=== PATIENT | male | born 1940 | race Caucasian/White ===

== ENCOUNTER 2018-01-12 15:30 | Inpatient (IN) | payer OTHER ==
[~2018-01-12] VITALS: Ht 172.7 cm; Wt 78.5 kg
[~2018-01-12 15:30] MED LIST: ACTOS30 M1 PO; AGGRENOX 25 MG1 EACH PO; ATORVASTATIN CA80 M1 PO; CALTRATE 600 +1 EACH PO; CO Q-10100 MG PO; CRESTOR5 M1 PO; DAILY MULTIPLE1 EACH PO; FERROUS SULFAT325 M3 PO; FINASTERIDE5 M1 PO; FISH OIL 1,0001 EAC5 PO; FLOMAX0.4 M1 PO; GLIPIZIDE10 M2 PO; GLIPIZIDE5 M2 PO; HYDROCODON-ACE1 EAC2 PO; LISINOPRIL10 M1 PO; LUTEIN20 M2 PO; LUTEIN6 M3 PO; METFORMIN HCL1000 M1 PO; METOPROLOL TART25 M1 PO; OMEPRAZOLE20 M2 PO; OMEPRAZOLE40 M1 PO; ONGLYZA5 M1 PO; PROBIOTIC1 EACH PO; VITAMIN B-121000 MC3 PO
--- NOTE | 2018-01-12 15:32 | ED GENERAL ADULT ---
See Addendum History of Present Illness General Chief Complaint: General Adult Stated Complaint: BIBA Source: patient Exam Limitations: no limitations Vital Signs & Intake/Output Vital Signs & Intake/Output Vital Signs Date Time Temp Pulse Resp B/P B/P Pulse O2 O2 Flow FiO2 Mean Ox Delivery Rate 01/128 98.4 70 20 142/81 97 Room Air 01/12 1720 97.9 72 18 126/84 96 Room Air 01/12 1555 Room Air 01/12 1548 97.8 68 18 152/74 98 Room Air 11 is Allergies Coded Allergies: aspirin (PLAIN ASA MAKES PT BLEED PER PT 01/10/18) ibuprofen (PER PT DOESNT TAKE 01/10/18) procaine (HEART RACES 01/10/18) Reconcile Medications Calcium Carbonate/Vitamin D3 (Caltrate 600 + D Tablet) 600 MG-800 TABLET 1 TAB PO DAILY SUPPLEMENT (Reported) Cyanocobalamin (Vitamin B-12) 1,000 MCG TABLET 1 TAB PO DAILY SUPPLEMENT ( Reported) Dipyridamole W/ Aspirin (Aggrenox 25 MG-200 MG Capsule) 25 MG-200 MG CPMP.12HR 1 CAP PO BID BLOOD THINNER (Reported) Ferrous Sulfate (Unknown Strength) TABLET.DR (Unknown Dose) PO DAILY SUPPLEMENT (Reported) Finasteride 5 MG TABLET 1 TAB PO DAILY PROSTATE (Reported) Glipizide 5 MG TABLET 1 TAB PO BID DM (Reported) Hydrocodone/Acetaminophen (Hydrocodon-Acetaminophen 5-325) 5 MG-325 MG TABLET 1 TAB PO 5XDAILY PRN PAIN (Reported) Lactobacillus Acidophilus (Probiotic) (Unknown Strength) CAPSULE (Unknown Dose ) PO DAILY PROBIOTIC (Reported) Lutein 20 MG TABLET 1 TAB PO DAILY SUPPLEMENT (Reported) Metformin HCl 1,000 MG TABLET 0.5 TAB PO BID DIABETES (Reported) Metoprolol Tartrate 25 MG TABLET 1 TAB PO BID HEART/BP (Reported) Multivitamin (Daily Multiple Vitamin) 1 EACH TABLET 1 TAB PO 1200 SUPPLEMENT (Reported) [place]-3S/Dha/Epa/Fish Oil (Fish Oil 1,000 MG Softgel) (Unknown Strength) CAPSULE (Unknown Dose) PO TID SUPPLEMENT (Reported) Omeprazole 40 MG CAPSULE.DR 1 CAP PO DAILY GI (Reported) Rosuvastatin Calcium (Crestor) (Unknown Strength) TABLET (Unknown Dose) PO QPM CHOLESTEROL (Reported) Saxagliptin (Onglyza) 5 MG TABLET 1 TAB PO DAILY DM (Reported) Tamsulosin HCl (Flomax) 0.4 MG CAP.ER.24H 1 CAP PO QPM PROSTATE (Reported) Ubidecarenone (Co Q-10) 100 MG CAPSULE 1 CAP PO DAILY SUPPLEMENT (Reported) Triage Nurses Notes Reviewed? yes Onset: Abrupt Duration: minute(s): Timing: single episode today HPI: 77 year old male that presents to the Emergency Department after a rapid response being called from cardiac rehab. He reports right sided weekness and facial droop during cardiac rehab. on arrival he was taken directly to cat scan and experienced complete resolution of the right sided weakness. No chest pain no shortness of breath. Past History Medical History Any Pertinent Medical History? see below for history Neurological: NONE EENT: NONE Cardiovascular: hypertension, hyperlipidemia Respiratory: pneumonia Gastrointestinal: NONE Hepatic: NONE Renal: NONE Musculoskeletal: NONE Psychiatric: NONE Endocrine: diabetes Blood Disorders: NONE Cancer(s): NONE TAIL TRIMMER/Reproductive: NONE History of MRSA: No History of VRE: No History of CDIFF: No Surgical History Surgical History: history of prostate biopsy with negative results., aortic valve replacement Psychosocial History What is your primary language Estonian Family History Family History, If Any: grandmother FH: diabetes mellitus Hx Contributory? No Review of Systems Review of Systems Constitutional: Reports: see HPI, weakness. Denies: fever. EENTM: Reports: no symptoms. Denies: double vision, visual changes. Respiratory: Reports: no symptoms. Cardiovascular: Reports: no symptoms. Denies: chest pain. GI: Reports: no symptoms. Denies: nausea, vomiting. Genitourinary: Reports: no symptoms. Musculoskeletal: Reports: no symptoms. Skin: Reports: no symptoms. Neurological/Psychological: Reports: see HPI, numbness, paresthesia, weakness, other (left sided facial deficit). Denies: headache. Hematologic/Endocrine: Reports: no symptoms. Immunologic/Allergic: Reports: no symptoms. All Other Systems: Reviewed and Negative Physical Exam Physical Exam General Appearance: well developed/nourished, alert, awake, mild distress Head: atraumatic, normal appearance Eyes: Bilateral: normal appearance, PERRL, EOMI. Ears, Nose, Throat: normal ENT inspection Neck: normal inspection, full range of motion Respiratory: normal breath sounds, lungs clear Cardiovascular: regular rate/rhythm Peripheral Pulses: 4+ radial (R), 4+ radial (L) Gastrointestinal: soft, non-tender Back: normal inspection Extremities: normal inspection Neurologic/Psych: awake, alert, oriented x 3 Skin: intact, normal color, warm/dry, ecchymosis, small focal ecchymosis to the left buttock Core Measures ACS in differential dx? No CVA/TIA Diagnosis: Yes NIH Stroke Scale (24 Hours) NIH Stroke Scale (24 Hours) Response Value Level of Consciousness alert 0 Total 0 Date Last Known Well: 01/12/18 Time Last Known Well: 151 Symptom start date: 01/12/18 Symptom start time: 1519 tPA Risk/Benefit discussion I have discussed the risks, benefits, and alternatives of Alteplase treatment including: - If given promptly, can resolve or have major improvement in stroke symptoms. - Bleeding (hemorrhage) is the most common risk that can occur. - Bleeding may occur into the brain and cause~prison serious disability~ including - this is rare, affecting about 1% of patients. - Alternative treatments with proven benefit for patients with stroke include aspirin and care in a specialized unit where staff members pay careful attention to a variety of basic aspects of care. tPA given? No Reason tPA not given Medical Contraindication Swallow Evaluation Not Done Sepsis Present: No Sepsis Focused Exam Completed? No Progress Differential Diagnoses I considered the following diagnoses in my evaluation of the patient: [TIA, CVA, intracranial hemorrhage] Plan of Care: Orders Procedure Date/time Status Heart Healthy Diet 01/13 B Active Patient Data 01/13 1932 Active ED Holding Orders 01/12 1838 Active Admit to inpatient 01/12 1838 Active Vital Signs 01/12 1838 Active Code Status 01/12 1838 Active Saline Lock 01/12 1535 Active PROTHROMBIN TIME 01/12 1535 Complete COMPREHENSIVE METABOLIC PANEL 01/12 1535 Complete CBC WITHOUT DIFFERENTIAL 01/12 1535 Complete EKG 01/12 1535 Active Laboratory Tests 01/12/18 1600: Anion Gap 12, Estimated GFR 53 L, BUN/Creatinine Ratio 23.1, Glucose 141 H, Calcium 10.2, Total Bilirubin 0.5, AST 23, ALT 17 L, Alkaline Phosphatase 58, Total Protein 7.5, Albumin 4.5, Globulin 3.0, Albumin/Globulin Ratio 1.5, PT 10.9, INR 1.00, CBC w Diff NO MAN DIFF REQ, RBC 4.57 L, MCV 88.9, MCH 29.6, MCHC 33.4, RDW 13.8, MPV 9.6, Gran % 65.2, Lymphocytes % 22.8, Monocytes % 10.3 H, Eosinophils % 1.4, Basophils % 0.3, Absolute Granulocytes 5.1, Absolute Lymphocytes 1.8, Absolute Monocytes 0.8 H, Absolute Eosinophils 0.1, Absolute Basophils 0 Initial ED EKG: NSR, nonspecific ST T wave chg Prior EKG: unchanged Departure Departure Disposition: STILL A PATIENT Condition: Stable Clinical Impression Primary Impression: TIA (transient ischemic attack) Referrals: [facility] Eusebio NAYAK (PCP/Family) Departure Forms: Customer Survey General Discharge Information Comments The patient states he was actually outside gardening on Friday and fell and injured his left buttocks. Then today at the gym in cardiac rehabilitation he developed numbness to his right thumb, then to his right leg, and then to the right side of his face. Shortly after he had difficulty speaking. All the symptoms resolved when he was in CAT scan. Admission Note Spoke With: Caroline Moser MD Documentation of Exam: Documentation of any treatments & extenuating circumstances including Concerns Regarding Discharge (functional status, medication knowledge or non-compliance, living conditions, etc.) that warrant an admission rather than observation: [ Cardiac monitoring, neurology consultation, review of medications, neurology evaluations every 6 hours, consider echocardiogram] Critical Care Note Critical Care Note Critical Care Time: 30-74 min
--- NOTE | 2018-01-12 16:02 | CT SCAN REPORT ---
EXAMINATION: CT HEAD WITHOUT CONTRAST CLINICAL INFORMATION: Right-sided weakness. COMPARISON: 01/10/2018, 12/04/2017. TECHNIQUE: Contiguous axial imaging was performed from the skull base to vertex without intravenous administration of contrast. DLP: 614.78 mGy-cm FINDINGS: No evidence of acute intracranial hemorrhage or extra-axial fluid collection. No acute territorial infarction. Chronic right cerebellar infarct. Few scattered hypodensities within the left basal ganglia, unchanged and likely on the basis of old lacunar infarcts. Periventricular white matter hypodensities, nonspecific finding but unchanged and likely related to chronic small vessel ischemic disease. No evidence of mass lesion, mass effect or midline shift. The ventricles are symmetric in configuration and basal cisterns are patent. Unchanged mild sulcal prominence in proportion to the ventricular size consistent with global volume loss. The calvarium is intact. Limited views of the paranasal sinuses are unremarkable. Mastoid air cells are well aerated and middle ear cavities are clear. Calcification of the cavernous carotid arteries. IMPRESSION: Stable examination without evidence of acute intracranial abnormality. Chronic right cerebellar infarct. Few scattered chronic small vessel ischemic changes.
[2018-01-12 16:15] LABS: ABSOLUTE BASOPHIL COUNT 0 /CUMM (0.0-0.2); ABSOLUTE EOSINOPHIL COUNT 0.1 /CUMM (0.0-0.7); ABSOLUTE GRANULOCYTE CT 5.1 /CUMM (1.4-6.5); ABSOLUTE LYMPH COUNT 1.8 /CUMM (1.2-3.4); ABSOLUTE MONOCYTE COUNT 0.8 /CUMM (0.10-0.60); BASOPHIL % 0.3 % (0.0-2.0); EOSINOPHIL % 1.4 % (0-5); GRANULOCYTE % 65.2 % (42.2-75.2); HEMATOCRIT 40.6 % (42-52); MEAN CORPUSCULAR HGB 29.6 PG (27.0-31.0); MEAN CORPUSCULAR HGB CONC 33.4 G/DL (33.0-37.0); MEAN CORPUSCULAR VOLUME 88.9 FL (80.0-94.0); MEAN PLATELET VOLUME 9.6 FL (7.4-10.4); PLATELET COUNT 181 /CUMM (130-400); RBC DISTRIBUTION WIDTH 13.8 % (11.5-14.5); RED BLOOD CELL CT 4.57 /CUMM (4.70-6.10); WHITE BLOOD CELL COUNT 7.9 /CUMM (4.8-10.8)
--- NOTE | 2018-01-12 16:39 | RADIOLOGY REPORT ---
EXAMINATION: XR PORTABLE CHEST CLINICAL INFORMATION: Right-sided weakness. COMPARISON: Chest x-ray 12/04/2017 TECHNIQUE: Portable frontal view of the chest was obtained. 3:53 PM FINDINGS: Status post median sternotomy. Lung volume is low. There is no acute abnormality. There is no pulmonary vascular congestion. No infiltrate or pleural effusion. There is no pneumothorax. The heart size is normal. The cardiac and mediastinal contours are normal. IMPRESSION: No acute abnormality of the chest.
[2018-01-12 17:07] LABS: PT 10.9 SEC (9.4-12.5)
--- NOTE | 2018-01-12 20:09 | History & Physical ---
Jesús Choi 01/12/182007: General Information and HPI MD Statement: I have seen and personally examined REINA GREGG and documented this H&P. The patient is a 77 year old M who presented with a patient stated chief complaint of [right sided weakness]. Source of Information: patient Exam Limitations: no limitations History of Present Illness: The patient is a 77-year-old gentleman with past medical history significant for hypertension, hyperlipidemia, and diabetes mellitus type 2 who has been brought in by ambulance with chief complaint of right sided weakness and facial droop. He was relatively fine today. He went to cardiology rehabilitation this afternoon. He was doing his routine is scheduling the cardio rehab center and he was ready to go home at 3 PM when he felt numbness in his right arm and also right foot and right side of his face. He also reports that he had slurred speech at that time. Based on reports from people around to him he had also right sided facial droop at that time. During the interview he has no symptoms no weakness no numbness no tingling in his right or left side of his body. He denies any change in his vision securing the event this afternoon at 3 PM and he does not have any now. His symptoms lasted for almost 30 minutes. He did not have shortness of breath, lightheadedness, abnormal movements, headache, chest pain, palpitation, dizziness, nausea, vomiting, falling, loss of consciousness, or losing the control of his urine or bowel movements. He reports that he has a bruise of his size of 5 cm x 5 cm of his left buttock Past medical history: Hypertension, hyperlipidemia, diabetes mellitus type 2, benign prostatic hyperplasia. Past surgical history: Right shoulder surgery 30 years ago, aortic valve replacement (July 2017), prostate biopsy(negative results for prostate cancer) Allergies: Aspirin (Bleeding), procaine (palpitation), ibuprofen Family history: Diabetes mellitus in his grandmother otherwise not significant Social history: He lives at his home with his , he used to smoke for 10 years and quit 45 years ago, he does not drink alcohol and he does not use recreational drugs Lab: WBC: 7.9, Hb: 13.5, HCT: 40 0.6, PLT: 181, PT: 10.9, INR: 1.00, Sodium: 139, potassium: 4.3, chloride: 100, CO2: 28, BUN: 30, creatinine: 1.3, Blood glucose: 141, Calcium: 10.2, LFT: WNL EKG: Previous: Normal sinus rhythm, heart rate of 82, T flattening in inferior leads( II, III, aVF) and I, aVL, T inversion in V4 to 6 Today's EKG at 16: 49, showed no changes comparing to the previous EKG Imaging: Chest x-ray: No acute abnormality of the chest. Head CT:Stable examination without evidence of acute intracranial abnormality. Chronic right cerebellar infarct. Few scattered chronic small vessel ischemic changes. Allergies/Medications Allergies: Coded Allergies: aspirin (PLAIN ASA MAKES PT BLEED PER PT 01/10/18) ibuprofen (PER PT DOESNT TAKE 01/10/18) procaine (HEART RACES 01/10/18) Home Med list Calcium Carbonate/Vitamin D3 (Caltrate 600 + D Tablet) 600 MG-800 TABLET 1 TAB PO DAILY SUPPLEMENT (Reported) Cyanocobalamin (Vitamin B-12) 1,000 MCG TABLET 1 TAB PO DAILY SUPPLEMENT ( Reported) Dipyridamole W/ Aspirin (Aggrenox 25 MG-200 MG Capsule) 25 MG-200 MG CPMP.12HR 1 CAP PO BID BLOOD THINNER (Reported) Ferrous Sulfate 325 MG (65 MG IRON) TABLET 1 TAB PO DAILY SUPPLEMENT ( Reported) Finasteride 5 MG TABLET 1 TAB PO DAILY PROSTATE (Reported) Glipizide 5 MG TABLET 1 TAB PO BID DM (Reported) Hydrocodone/Acetaminophen (Hydrocodon-Acetaminophen 5-325) 5 MG-325 MG TABLET 1 TAB PO 5XDAILY PRN PAIN (Reported) Lactobacillus Acidophilus (Probiotic) (Unknown Strength) CAPSULE (Unknown Dose ) PO DAILY PROBIOTIC (Reported) Lutein 20 MG TABLET 1 TAB PO DAILY SUPPLEMENT (Reported) Metformin HCl 1,000 MG TABLET 0.5 TAB PO BID DIABETES (Reported) Metoprolol Tartrate 25 MG TABLET 1 TAB PO BID HEART/BP (Reported) Multivitamin (Daily Multiple Vitamin) 1 EACH TABLET 1 TAB PO 1200 SUPPLEMENT (Reported) [place]-3S/Dha/Epa/Fish Oil (Fish Oil 1,000 MG Softgel) (Unknown Strength) CAPSULE (Unknown Dose) PO TID SUPPLEMENT (Reported) Omeprazole 40 MG CAPSULE.DR 1 CAP PO DAILY GI (Reported) Rosuvastatin Calcium (Crestor) (Unknown Strength) TABLET (Unknown Dose) PO QPM CHOLESTEROL (Reported) Saxagliptin (Onglyza) 5 MG TABLET 1 TAB PO DAILY DM (Reported) Tamsulosin HCl (Flomax) 0.4 MG CAP.ER.24H 1 CAP PO QPM PROSTATE (Reported) Ubidecarenone (Co Q-10) 100 MG CAPSULE 1 CAP PO DAILY SUPPLEMENT (Reported) Compliance With Home Meds: GOOD Past History Travel History Traveled to [place] past 21 day No Medical History Neurological: NONE EENT: NONE Cardiovascular: hypertension, hyperlipidemia Respiratory: pneumonia Gastrointestinal: NONE Hepatic: NONE Renal: NONE Musculoskeletal: NONE Psychiatric: NONE Endocrine: diabetes Blood Disorders: NONE Cancer(s): NONE 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 aortic valve replacement Past Family/Social History Family History Relations & Conditions if any grandmother FH: diabetes mellitus Review of Systems Review of Systems Constitutional: Reports: see HPI. EENTM: Reports: see HPI. Cardiovascular: Reports: see HPI. Respiratory: Reports: see HPI. GI: Reports: constipation, diarrhea (Depending on his diet). Musculoskeletal: Reports: see HPI, back pain. Skin: Reports: see HPI. Neurological/Psychological: Reports: see HPI. Hematologic/Endocrine: Reports: see HPI. Immunologic/Allergic: Reports: see HPI. Exam & Diagnostic Data Last 24 Hrs of Vital Signs/I&O Vital Signs Date Time Temp Pulse Resp B/P B/P Pulse O2 O2 Flow FiO2 Mean Ox Delivery Rate 01/12 2208 97.7 71 20 140/72 96 Room Air 01/12 1928 98.4 70 20 142/81 97 Room Air 01/12 1720 97.9 72 18 126/84 96 Room Air 01/12 1555 Room Air 01/12 1548 97.8 68 18 152/74 98 Room Air Intake & Output 01/13 0800 01/13 0000 01/12 1600 Intake Total 100 0 Output Total 0 Balance 100 0 Intake, Oral 100 0 Output, Urine 0 Patient 172 lb 170 lb Weight Weight Bed scale Measurement Method Physical Exam General Appearance Alert, Oriented X3, Cooperative, No Acute Distress Skin No Rashes (5x5 cm bruise on his buttock) Skin Temp/Moisture Exam: Warm/Dry Sepsis Skin Exam (color): Normal for Ethnicity HEENT Atraumatic, PERRLA, EOMI Neck Supple, No JVD, No LAD Cardiovascular Regular Rate, Normal S1, Normal S2, questionable systolic murmur Lungs Clear to Auscultation, Normal Air Movement Abdomen Normal Bowel Sounds, Soft, No Tenderness Neurological Normal Speech, Strength at 5/5 X4 Ext, Normal Tone, Sensation Intact, Cranial Nerves 3-12 NL Extremities No Clubbing, No Cyanosis, Normal Pulses (5x5 cm bruise on his buttock) Vascular Normal Pulses Sepsis Peripheral Pulse Location: Radial Sepsis Peripheral Pulse Exam: Normal Sepsis Cap Refill Exam: <2 Sec Assessment/Plan Assessment: The patient is a 77-year-old man with past medical history significant for TIA, hypertension hyperlipidemia, diabetes mellitus who is here with chief complaint of acute onset right-sided weakness, facial droop, and slurred speech. His symptoms improved almost half an hour after the event and the patient does not have any complaints right now other than the usual complaints (chronic pain) . In physical examination the patient is in no acute distress and he does not have focal neurologic deficit. His electrolytes and LFT CVC and INR are within normal limits. His EKG showed nonspecific changes, his chest x-ray did not show any acute pathology, while his CT scan showed chronic right cerebellar infarct. The history and physical examination of the patient is consistent with a transient ischemic attack which was resolved within 30 minutes after the start of the event. He also had one episode of TIA in 2006 and since then he has been placed on anticoagulation therapy. It is prudent to admit the patient in telemetry and keep him monitored and search for the possible source of the cause of TIA which could be his aortic valve so it is prudent to do an echocardiogram, carotid Doppler, and a consult with neurologist, medical therapy with anticoagulants on a statin medication should be followed. Problem list: Right sided facial droop with slurred speech and weakness on the right side which is consistent with a possible TIA The patient has a trauma and a bruise on his left buttock Hypertension Hyperlipidemia Diabetes mellitus As Ranked By This Provider Problem List: 1. TIA (transient ischemic attack) Core Measures/Misc (03/09) Acute Coronary Syndrome ACS Diagnosis: No Congestive Heart Failure Congestive Heart Failure Diagnosis No Cerebrovascular Accident CVA/TIA Diagnosis: Yes NIH Stroke Scale: Total 0 Date Last Known Well: 01/12/18 Time Last Known Well: 1515 Symptom Start Date: 01/12/18 Symptom Start Time: 1520 tPA Risk/Benefit discussion I have discussed the risks, benefits, and alternatives of Alteplase treatment including: - If given promptly, can resolve or have major improvement in stroke symptoms. - Bleeding (hemorrhage) is the most common risk that can occur. - Bleeding may occur into the brain and cause~termite renewal inspector serious disability~ including - this is rare, affecting about 1% of patients. - Alternative treatments with proven benefit for patients with stroke include aspirin and care in a specialized unit where staff members pay careful attention to a variety of basic aspects of care. tPA given? No Swallow Evaluation Not Done VTE (View Protocol) VTE Risk Factors Age>40 No Mechanical VTE Prophylaxis d/t N/A MechProphylax Ordered No VTE Pharm Prophylaxis d/t NA PharmProphylax ordered Sepsis (View protocol) Sepsis Present: No If YES complete Sepsis Event Note If YES complete Sepsis Event Note Mc Moy MD 01/12/182025: Core Measures/Misc (03/09) Sepsis (View protocol) If YES complete Sepsis Event Note If YES complete Sepsis Event Note Resident Review Statement Resident Statement: examined this patient, discussed with internal grinder set up operator, agreed with internal grinder set up operator, reviewed EMR data (avail) Other Findings: History of present illness 77-year-old man with past medical history of hypertension, hyperlipidemia, non- insulin-dependent diabetes mellitus, GI bleed/peptic ulcer disease, and TIA ( 2006) brought in by ambulance from cardiac rehab for evaluation of right sided weakness with facial droop. Patient reportedly suffered a mechanical fall this past Friday resulting in minor trauma to his left buttock. Since that time he has been in moderate pain. He attended his cardiac rehab today and was unable to participate in most of the exercises due to this pain. He wanted to leave early when his instructor apparently noticed that patient was not using his right side very much with an obvious right-sided facial droop and slurred speech. Rapid response was called and patient was transferred to the [facility] ED for further evaluation. Upon arrival to the [facility] ED patient had complete resolution of all of his symptoms. Review of Systems Otherwise denies any headache, fever, chills, blurred / double vision, lightheadedness, dizziness, numbness, tingling, weakness, chest pain, palpitations, heartburn, shortness of breath, cough, nausea, vomiting, diarrhea, constipation, urinary symptoms. Objective Vitals-temperature 97.8-98.4, HR 68-72, RR 18-20, BP 126-152/74-84, O2 96-98% on room air Physical exam -General: Elderly man in no acute distress -HEENT: NCAT, Jose, EOMI, anicteric sclera -Neck: Supple, no JVD, trachea midline, no accessory respiratory muscle -Cardio: Normal S1/S2 without murmurs/gallops/rubs -Pulmonary: Clear to auscultation bilateral -Abdomen: Soft, nontender, nondistended -Neuro: Awake and alert, speech/sensation/coordination intact, face symmetric, strength 5/54, gait not assessed, cranial nerves II through XII grossly intact -Extremities: Normal pulses, no edema, minor wounds in various stages of healing -Skin: ~3 inch area of ecchymosis with tenderness to left lateral buttock Labs/imaging/studies -CBC: WBC 7.9, hemoglobin 13.5, hematocrit 40.6, platelet 181 -BMP: Sodium 139, potassium 4.3, chloride 100, CO2 28, BUN 30, creatinine 1.3, anion gap 12, glucose 141 -LFT: Within normal limits -Miscellaneous: INR 1.00 -Echocardiogram 04/25/16: LVEF >65% with moderate concentric LVH and stage I diastolic dysfunction, moderate/severe aortic stenosis -EKG: -CXR: No acute abnormality of the chest -CT head without IV contrast: * Stable examination without evidence of acute intracranial abnormality. * Chronic right cerebellar infarct. Few scattered chronic small vessel ischemic changes. Assessment 77-year-old man with multiple medical problems significant for past TIA, hypertension, hyperlipidemia, and [id number] diabetes seen for evaluation of acute onset right-sided weakness, facial droop, and slurred speech. Presently patient is complaining of his chronic pain and denies any new complaints. Vital signs are within normal limits. Physical examination demonstrates elderly man in no acute distress with a normal cardiopulmonary examination and a nonfocal neurologic examination. Labs including CBC, serum chemistry, LFT, and INR are within normal limits or otherwise negative. EKG demonstrates nonspecific ST-T wave changes. Chest x-ray is unremarkable. CT head demonstrates chronic right cerebellar infarct. Clinically patient appears to have had a transient ischemic attack with complete resolution of his neurologic symptoms. Patient was already on aspirin/ dipyridamole with statin therapy due to his previous TIA in 2006. Patient is to be admitted to the telemetry floor for telemetry monitoring, ongoing antiplatelet/statin therapy, echocardiogram, carotid Doppler, and neurology evaluation. Problem List -Acute right sided weakness with facial droop and slurred speech, probable TIA -Recent fall with left buttock trauma -history of TIA (2006), on aspirin/dipyridamole and statin -Hypertension -Hyperlipidemia -Kao-vdlbrmz-gxruyuccz diabetes mellitus -History of GI bleed/peptic ulcer disease -BPH Plan -Admit to telemetry floor -Telemetry monitoring -Neurochecks -Accuchecks TIDAC/HS with novolog SSI -Continue home meds: calcium, vitamin D, aggrenox, iron, finesteride, omeprazole , statin, flomax -Hold oral hypoglycemics -Consult with neurology for ASHLEY -Echocardiogram -Carotid doppler -Check Lipid panel, HbA1c -Pain control with hydrocodone -Heart Healthy Diet -DVT Ppx with subcutaneous heparin -FULL CODE Caroline Moser MD 01/12/18 2330: Core Measures/Misc (03/09) Sepsis (View protocol) If YES complete Sepsis Event Note If YES complete Sepsis Event Note Attending MD Review Statement Attending Statement Attending MD Statement: examined this patient, discuss w/resident/PA/UNIVERSAL WINDING MACHINE OPERATOR, agreed w/resident/PA/UNIVERSAL WINDING MACHINE OPERATOR, reviewed EMR data (avail) Attending Assessment/Plan: 77M PMH HTN, HLD, T2DM, history of TIA April 2016 on Aggrenox and statin, was at cardiac rehab and was noted to have right sided weakness and right facial droop. He was taken by ambulance to ER, by which time his symptoms had resolved. He is currently asymptomatic with a normal neurological exam. CT head showed only chronic right cerebellar infarct. Of note, his TIA in 2016 presented with left sided paresthesia and numbness, with symptoms resolving after 45 minutes. EKG NSR, labs unremarkable, normal neuro exam. 1. TIA Will admit to medicine, telemetry monitoring, neurology consult, continue Aggrenox and statin, echocardiogram (last in 2015), carotid doppler, continue home meds.
[2018-01-12 22:08] VITALS: BP 140/72
--- NOTE | 2018-01-12 23:31 | Admission Certification ---
Admission Certification Certification Statement - As attending physician, I certify that at the time of - admission, based on clinical presentation, severity of - symptoms, need for further diagnostic testing and - therapeutic interventions, and risk of adverse outcomes - without in-hospital treatment, in my clinical assessment, - this patient requires an acute hospital stay for a minimum - of two nights or longer. I have also considered psychsocial - factors such as support system, advanced age, financial - issues, cognitive issues, and failed out-patient treatments, - past re-admission history, safety of patient, and lack of - compliance as applicable. Specific rationale supporting this admission is: TIA with history of recent similar concerning for impending CVA
[2018-01-13 06:33] VITALS: BP 132/72
--- NOTE | 2018-01-13 07:32 | PN- Housestaff ---
Nessa Giron MD 01/13/18 0732: Subjective Follow-up For: tia Subjective: Patient seen and examined. He stated that he feels fine and has no symptoms. Vital signs are stable. The patient has a clear neuro exam. The patient states that for a long time he has had "silent migraines" with no pain but with neurological symptoms like tingling and weakness. The last one that he had was a couple months prior. Review of Systems Constitutional: Reports: no symptoms. Cardiovascular: Reports: no symptoms. Respiratory: Reports: no symptoms. Gastrointestinal: Reports: no symptoms. Genitourinary: Reports: no symptoms. Musculoskeletal: Reports: no symptoms. Skin: Reports: no symptoms. Neurological/Psychological: Reports: no symptoms. Objective Last 24 Hrs of Vital Signs/I&O Vital Signs Date Time Temp Pulse Resp B/P B/P Pulse O2 O2 Flow FiO2 Mean Ox Delivery Rate 01/13 1355 98.3 77 18 110/62 97 01/13 0749 68 142/86 01/13 0633 98.6 75 20 132/72 97 Room Air 01/12 2208 97.7 71 20 140/72 96 Room Air 01/12 1928 98.4 70 20 142/81 97 Room Air 01/12 1720 97.9 72 18 126/84 96 Room Air 01/12 1555 Room Air 01/12 1548 97.8 68 18 152/74 98 Room Air Intake & Output 01/13 1600 01/13 0800 01/13 0000 Intake Total 100 100 Output Total Balance 100 100 Intake, Oral 100 100 Patient 172 lb Weight Weight Bed scale Measurement Method Physical Exam General Appearance: Alert, Oriented X3, Cooperative, No Acute Distress Skin: No Rashes, No Breakdown, No Significant Lesion Skin Temp/Moisture Exam: Warm/Dry Cardiovascular: Regular Rate, Normal S1, Normal S2, No Murmurs Lungs: Clear to Auscultation, Normal Air Movement Abdomen: Normal Bowel Sounds, Soft, No Tenderness, No Hepatospenomegaly, No Masses Neurological: Normal Gait, Normal Speech, Strength at 5/5 X4 Ext, Normal Tone, Sensation Intact, Cranial Nerves 3-12 NL Extremities: No Clubbing, No Cyanosis, No Edema, Normal Pulses Vascular: Normal Pulses, Pulses Symmetrical Current Medications: Current Medications Sig/Tyesha Start time Last Medication Dose Route Stop Time Status Admin Acetaminophen 650 MG Q6P PRN 01/12 2245 AC PO Atorvastatin Calcium 80 MG 1700 01/13 1700 AC PO Calcium/Vitamin D 500 MG DAILY 01/13 0900 AC 01/13 PO 0747 Cyanocobalamin 1,000 MCG DAILY 01/13 0900 AC 01/13 PO 0747 Dipyridamole/Aspirin 1 CAP BID 01/12 2300 AC 01/13 PO 0749 Docusate Sodium 100 MG DAILY 01/13 09 AC 01/13 PO 0749 Ferrous Sulfate 325 MG DAILY 01/13 09 AC 01/13 PO 0749 Finasteride 5 MG DAILY 01/13 0900 AC 01/13 PO 0749 Heparin Sodium 5,000 UNIT Q8 01/13 0600 AC 01/13 (Porcine) SC 0640 Hydrocodone Bitart/ 1 TAB Q4 HRS NEEDED PRN 01/12 2245 AC 01/12 Acetaminophen PO 2307 Insulin Aspart 0 TIDAC 01/13 08 AC 01/13 SC 1215 Metoprolol Tartrate 25 MG BID 01/12 2300 AC 01/13 PO 0749 Multivitamins 1 TAB 1200 01/13 1200 AC 01/13 Therapeutic PO 1215 Omeprazole 40 MG DAILY AC 01/13 0700 AC 01/13 PO 0641 Polyethylene Glycol 17 GM DAILY PRN 01/12 2245 AC 01/13 PO 0640 Senna 187 MG AT BEDTIME 01/13 2100 AC PO Tamsulosin HCl 0.4 MG QPM 01/13 2100 AC PO Last 24 Hrs of Lab/Jr Results Last 24 Hrs of Labs/Mics: Laboratory Tests 01/13/18 0654: Anion Gap 13, Estimated GFR 53 L, BUN/Creatinine Ratio 20.8, Hemoglobin A1c 8.1 H, Magnesium 1.5 L, Triglycerides 445 H, Cholesterol 342 H, LDL Cholesterol Direct 195.42 H, LDL Cholesterol, Calc ND, HDL Cholesterol 43, Cholesterol/HDL Ratio 8.0 H, CBC w Diff NO MAN DIFF REQ, RBC 4.53 L, MCV 88.8, MCH 29.9, MCHC 33.7, RDW 13.8, MPV 10.2, Gran % 65.8, Lymphocytes % 24.9, Monocytes % 8.0, Eosinophils % 1.0, Basophils % 0.3, Absolute Granulocytes 5.5, Absolute Lymphocytes 2.1, Absolute Monocytes 0.7 H, Absolute Eosinophils 0.1, Absolute Basophils 0 01/12/18 1600: Anion Gap 12, Estimated GFR 53 L, BUN/Creatinine Ratio 23.1, Glucose 141 H, Calcium 10.2, Total Bilirubin 0.5, AST 23, ALT 17 L, Alkaline Phosphatase 58, Total Protein 7.5, Albumin 4.5, Globulin 3.0, Albumin/Globulin Ratio 1.5, PT 10.9, INR 1.00, CBC w Diff NO MAN DIFF REQ, RBC 4.57 L, MCV 88.9, MCH 29.6, MCHC 33.4, RDW 13.8, MPV 9.6, Gran % 65.2, Lymphocytes % 22.8, Monocytes % 10.3 H, Eosinophils % 1.4, Basophils % 0.3, Absolute Granulocytes 5.1, Absolute Lymphocytes 1.8, Absolute Monocytes 0.8 H, Absolute Eosinophils 0.1, Absolute Basophils 0 Assessment/Plan Assessment: 77-year-old man with past medical history of hypertension, hyperlipidemia, non- insulin-dependent diabetes mellitus, GI bleed/peptic ulcer disease, and TIA ( 2006) brought in by ambulance from cardiac rehab for evaluation of right sided weakness with facial droop. Patient reportedly suffered a mechanical fall this past Friday resulting in minor trauma to his left buttock. Since that time he has been in moderate pain. He attended his cardiac rehab today and was unable to participate in most of the exercises due to this pain. He wanted to leave early when his instructor apparently noticed that patient was not using his right side very much with an obvious right-sided facial droop and slurred speech. Rapid response was called and patient was transferred to the [facility] ED for further evaluation. Upon arrival to the [facility] ED patient had complete resolution of all of his symptoms. Review of Systems Otherwise denies any headache, fever, chills, blurred / double vision, lightheadedness, dizziness, numbness, tingling, weakness, chest pain, palpitations, heartburn, shortness of breath, cough, nausea, vomiting, diarrhea, constipation, urinary symptoms. Objective Vitals-temperature 97.8-98.4, HR 68-72, RR 18-20, BP 126-152/74-84, O2 96-98% on room ai Labs/imaging/studies -CBC: WBC 7.9, hemoglobin 13.5, hematocrit 40.6, platelet 181 -BMP: Sodium 139, potassium 4.3, chloride 100, CO2 28, BUN 30, creatinine 1.3, anion gap 12, glucose 141 -LFT: Within normal limits -Miscellaneous: INR 1.00 -Echocardiogram 04/25/16: LVEF >65% with moderate concentric LVH and stage I diastolic dysfunction, moderate/severe aortic stenosis -EKG: -CXR: No acute abnormality of the chest -CT head without IV contrast: * Stable examination without evidence of acute intracranial abnormality. * Chronic right cerebellar infarct. Few scattered chronic small vessel ischemic changes. Assessment 77-year-old man with multiple medical problems significant for past TIA, hypertension, hyperlipidemia, and vno-fehafib-elrpbhnfl diabetes seen for evaluation of acute onset right-sided weakness, facial droop, and slurred speech. Presently patient denies any new complaints. Vital signs are within normal limits. Physical examination demonstrates elderly man in no acute distress with a normal cardiopulmonary examination and a nonfocal neurologic examination. Labs including CBC, serum chemistry, LFT, and INR are within normal limits or otherwise negative. EKG demonstrates nonspecific ST-T wave changes. Chest x- ray is unremarkable. CT head demonstrates chronic right cerebellar infarct. Clinically patient appears to have had a transient ischemic attack with complete resolution of his neurologic symptoms. Patient was already on aspirin/ dipyridamole with statin therapy due to his previous TIA in 2006. Problem List -Acute right sided weakness with facial droop and slurred speech, probable TIA -Recent fall with left buttock trauma -history of TIA (2006), on aspirin/dipyridamole and statin -Hypertension -Hyperlipidemia -Sao-ppqdquw-yqvdkuhvd diabetes mellitus -History of GI bleed/peptic ulcer disease -BPH Plan -Continue to watch patient in telemetry -Neurochecks every 2 hours -Accuchecks TIDAC/HS with novolog SSI -Continue home meds: calcium, vitamin D, aggrenox, iron, finesteride, omeprazole , statin, flomax -Hold oral hypoglycemics -Follow up on neurology consult for TIA -Follow up Echocardiogram -Carotid Doppler shows no evidence to suggest hemodynamically significant stenosis of greater than 50% diameter reduction. -Patient's hemoglobin A1c is 8.1. His lipid panel shows elevated triglycerides of 445, cholesterol 342, LDL of 195, HDL 43, cholesterol to HDL ratio of 8. Patient was on rosuvastatin before being admitted. He will need adjustment of this cholesterol regimen. -Patient was on Aggrenox because he could not take aspirin without bleeding. We will follow-up suggestions from neuro for new medication regimen as he has appeared to have a breakthrough TIA. -Pain control with hydrocodone -Heart Healthy Diet -DVT Ppx with subcutaneous heparin -FULL CODE Problem List: 1. TIA (transient ischemic attack) Pain Ratin Pain Location: na Pain Goal: Remain pain free Pain Plan: na Tomorrow's Labs & Rationales: Nancy oPst 01/13/18 1259: Attending MD Review Statement Attending Statement Attending MD Statement: examined this patient, discuss w/resident/PA/CONCRETE BATCHER, agreed w/resident/PA/CONCRETE BATCHER, reviewed EMR data (avail), discussed with nursing, discussed with case mgmt Attending Assessment/Plan: TIA- pts presented with rt side numbness and weakness and slurring of speech. pt symptoms resolved. was on aggrenox at home. will get neuro consult and may consider switching to Plavix . Pt gives h.o silent migraines in past but never have similar symptoms before. d/w pt the care plan.
[2018-01-13 07:48] LABS: ABSOLUTE BASOPHIL COUNT 0 /CUMM (0.0-0.2); ABSOLUTE EOSINOPHIL COUNT 0.1 /CUMM (0.0-0.7); ABSOLUTE GRANULOCYTE CT 5.5 /CUMM (1.4-6.5); ABSOLUTE LYMPH COUNT 2.1 /CUMM (1.2-3.4); ABSOLUTE MONOCYTE COUNT 0.7 /CUMM (0.10-0.60); BASOPHIL % 0.3 % (0.0-2.0); GRANULOCYTE % 65.8 % (42.2-75.2); HEMATOCRIT 40.2 % (42-52); MEAN CORPUSCULAR HGB 29.9 PG (27.0-31.0); MEAN CORPUSCULAR HGB CONC 33.7 G/DL (33.0-37.0); MEAN CORPUSCULAR VOLUME 88.8 FL (80.0-94.0); MEAN PLATELET VOLUME 10.2 FL (7.4-10.4); PLATELET COUNT 175 /CUMM (130-400); RBC DISTRIBUTION WIDTH 13.8 % (11.5-14.5); RED BLOOD CELL CT 4.53 /CUMM (4.70-6.10); WHITE BLOOD CELL COUNT 8.4 /CUMM (4.8-10.8)
--- NOTE | 2018-01-13 10:50 | ULTRASOUND REPORT ---
EXAMINATION: DUPLEX BILATERAL CAROTID ULTRASOUND CLINICAL INFORMATION: TIA COMPARISON: 04/24/2016 TECHNIQUE: Duplex bilateral carotid US was performed using real-time ultrasound and Doppler techniques (integrating B-mode 2D vascular images, Doppler spectral analysis and color flow Doppler imaging). These techniques were utilized to interrogate the extracranial carotid and vertebral arteries bilaterally. The degree of stenosis is based off criteria similar to NASCET. FINDINGS: 1. On the right: Plaque is present at the carotid bifurcation but velocity measurements are normal and do not suggest a stenosis of greater than 50% diameter reduction in the right ICA. The right ECA demonstrates a mild stenosis with peak systolic velocity of under 200 cm/s. The vertebral artery is patent demonstrating antegrade flow . 2. On the left: Plaque is present at the carotid bifurcation but velocity measurements are normal and do not suggest a stenosis of greater than 50% diameter reduction in the left ICA. The left external carotid artery shows no significant stenosis. The vertebral artery is patent demonstrating antegrade flow. Compared to the previous study, there has been no significant interval change. IMPRESSION: Plaque is present in the internal carotid arteries but velocity measurements are normal and there is no evidence to suggest a hemodynamically significant stenosis of greater than 50% diameter reduction.
--- NOTE | 2018-01-13 12:31 | Patient Discharge Instructions ---
Discharge Instructions General Discharge Information You were seen/treated for: TIA Special Instructions: 1. PLEASE FOLLOW UP WITH PCP IN ONE WEEK Diet Continue normal diet: Yes Activity Full Activity/No Limits: Yes Acute Coronary Syndrome Inclusion Criteria At DC or during hospital stay patient has or had the following: ACS DIAGNOSIS No Discharge Core Measures Meds if any: Prescribed or Continued at Discharge Meds if any: NOT Prescribed or Continued at Discharge Congestive Heart Failure Inclusion Criteria At DC or during hospital stay patient has or had the following: CHF DIAGNOSIS No Discharge Core Measures Meds if any: Prescribed or Continued at Discharge Meds if any: NOT Prescribed or Continued at Discharge Cerebrovascular accident Inclusion Criteria At DC or during hospital stay patient has or had the following: CVA/TIA Diagnosis Yes Discharge Core Measures Meds if any: Prescribed or Continued at Discharge Meds if any: NOT Prescribed or Continued at Discharge Venous thromboembolism Inclusion Criteria VTE Diagnosis No VTE Type NONE VTE Confirmed by (Test) NONE Discharge Core Measures - Per Current guidelines, there needs to be overlap - treatment for the first 5 days of Warfarin therapy. - If discharged on Warfarin prior to 5 days of - overlap therapy, the patient will need to be - assessed for post discharge needs including - *Post discharge parental anticoagulation - *Warfarin and/or parental anticoagulation education - *Follow up date to check INR post discharge At least 5 days overlap therapy as Inpatient No Meds if any: Prescribed or Continued at Discharge Note: Overlap Therapy is Warfarin and Anticoagulant Meds if any: NOT Prescribed or Continued at Discharge
[2018-01-13 13:55] VITALS: BP 110/62
[2018-01-13 21:26] VITALS: BP 110/58
[2018-01-14 06:00] VITALS: BP 138/72
--- NOTE | 2018-01-14 07:23 | PN- Housestaff ---
Nessa Giron MD 01/14/18 0723: Subjective Follow-up For: tia Tele-Events Since Last Visit: Normal sinus rhythm at 62-81 with no events. Subjective: Patient seen and examined. He has no complaints and his vitals are stable. He is scoring 0 on the NIH stroke scale. The patient has been found to have elevated cholesterol and hemoglobin A1c but notes that he has been taking his medications which include metformin, glipizide, so the Faisal, and a statin religiously as per his who told that his medication in the morning. Review of Systems Constitutional: Reports: no symptoms. EENTM: Reports: no symptoms. Cardiovascular: Reports: no symptoms. Respiratory: Reports: no symptoms. Gastrointestinal: Reports: no symptoms. Musculoskeletal: Reports: no symptoms. Neurological/Psychological: Reports: no symptoms. Objective Last 24 Hrs of Vital Signs/I&O Vital Signs Date Time Temp Pulse Resp B/P B/P Pulse O2 O2 Flow FiO2 Mean Ox Delivery Rate 01/14 1438 98.3 78 18 122/56 97 Room Air 01/14 0835 75 138/72 01/14 06 98.2 75 18 138/72 93 01/13 2126 97.5 77 18 110/58 96 Room Air 01/13 2051 79 110/58 01/13 205 77 110/58 Intake & Output 01/14 1600 01/14 0800 01/14 0000 Intake Total 400 Output Total Balance 400 Intake, Oral 400 Patient 173 lb Weight Weight Bed scale Measurement Method Physical Exam General Appearance: Alert, Oriented X3, Cooperative, No Acute Distress Skin: No Rashes Skin Temp/Moisture Exam: Warm/Dry Sepsis Skin Exam (color): Normal for Ethnicity Cardiovascular: Regular Rate, Normal S1, Normal S2, No Murmurs Lungs: Clear to Auscultation, Normal Air Movement Abdomen: Normal Bowel Sounds, Soft, No Tenderness Neurological: Normal Speech Extremities: No Clubbing, No Cyanosis, No Edema Vascular: Normal Pulses, Pulses Symmetrical Current Medications: Current Medications Sig/Tyesha Start time Last Medication Dose Route Stop Time Status Admin Acetaminophen 650 MG Q6P PRN 01/12 2245 AC PO Atorvastatin Calcium 80 MG 1700 01/13 1700 AC 01/13 PO 1745 Calcium/Vitamin D 500 MG DAILY 01/13 09 AC 01/14 PO 0836 Cyanocobalamin 1,000 MCG DAILY 01/13 09 AC 01/14 PO 0835 Dipyridamole/Aspirin 1 CAP BID 01/12 2300 AC 01/14 PO 0835 Docusate Sodium 100 MG DAILY 01/13 09 AC 01/14 PO 0834 Ferrous Sulfate 325 MG DAILY 01/13 0900 AC 01/13 PO 0749 Finasteride 5 MG DAILY 01/13 09 AC 01/14 PO 0835 Heparin Sodium 5,000 UNIT Q8 01/13 0600 AC 01/14 (Porcine) SC 1247 Hydrocodone Bitart/ 1 TAB Q4 HRS NEEDED PRN 01/12 2245 AC 01/14 Acetaminophen PO 1249 Insulin Aspart 0 TIDAC 01/13 08 AC 01/14 SC 1245 Metoprolol Tartrate 25 MG BID 01/12 2300 AC 01/14 PO 0835 Multivitamins 1 TAB 1200 01/13 1200 AC 01/14 Therapeutic PO 1245 Omeprazole 40 MG DAILY AC 01/13 07 AC 01/14 PO 0552 Polyethylene Glycol 17 GM DAILY PRN 01/12 2245 AC 01/13 PO 0640 Senna 187 MG AT BEDTIME 01/13 2100 AC 01/13 PO 2049 Tamsulosin HCl 0.4 MG QPM 01/13 2100 AC 01/13 PO 205 Last 24 Hrs of Lab/Jr Results Last 24 Hrs of Labs/Mics: Laboratory Tests 01/14/18 0642: Anion Gap 15, Estimated GFR 59 L, BUN/Creatinine Ratio 19.2 Assessment/Plan Assessment: 77-year-old man with past medical history of hypertension, hyperlipidemia, non- insulin-dependent diabetes mellitus, GI bleed/peptic ulcer disease, and TIA ( 2006) brought in by ambulance from cardiac rehab for evaluation of right sided weakness with facial droop. Patient reportedly suffered a mechanical fall this past Friday resulting in minor trauma to his left buttock. Since that time he has been in moderate pain. He attended his cardiac rehab today and was unable to participate in most of the exercises due to this pain. He wanted to leave early when his instructor apparently noticed that patient was not using his right side very much with an obvious right-sided facial droop and slurred speech. Rapid response was called and patient was transferred to the [facility] ED for further evaluation. Upon arrival to the [facility] ED patient had complete resolution of all of his symptoms. Review of Systems Otherwise denies any headache, fever, chills, blurred / double vision, lightheadedness, dizziness, numbness, tingling, weakness, chest pain, palpitations, heartburn, shortness of breath, cough, nausea, vomiting, diarrhea, constipation, urinary symptoms. Objective Vitals-temperature 97.8-98.4, HR 68-72, RR 18-20, BP 126-152/74-84, O2 96-98% on room ai Labs/imaging/studies -CBC: WBC 7.9, hemoglobin 13.5, hematocrit 40.6, platelet 181 -BMP: Sodium 139, potassium 4.3, chloride 100, CO2 28, BUN 30, creatinine 1.3, anion gap 12, glucose 141 -LFT: Within normal limits -Miscellaneous: INR 1.00 -Echocardiogram 04/25/16: LVEF >65% with moderate concentric LVH and stage I diastolic dysfunction, moderate/severe aortic stenosis -EKG: -CXR: No acute abnormality of the chest -CT head without IV contrast: * Stable examination without evidence of acute intracranial abnormality. * Chronic right cerebellar infarct. Few scattered chronic small vessel ischemic changes. Assessment 77-year-old man with multiple medical problems significant for past TIA, hypertension, hyperlipidemia, and bnk-twimxmj-anthkjdof diabetes seen for evaluation of acute onset right-sided weakness, facial droop, and slurred speech. Presently patient denies any new complaints. Vital signs are within normal limits. Physical examination demonstrates elderly man in no acute distress with a normal cardiopulmonary examination and a nonfocal neurologic examination. Labs including CBC, serum chemistry, LFT, and INR are within normal limits or otherwise negative. EKG demonstrates nonspecific ST-T wave changes. Chest x- ray is unremarkable. CT head demonstrates chronic right cerebellar infarct. Clinically patient appears to have had a transient ischemic attack with complete resolution of his neurologic symptoms. Patient was already on aspirin/ dipyridamole with statin therapy due to his previous TIA in 2006. Problem List -Acute right sided weakness with facial droop and slurred speech, probable TIA -Recent fall with left buttock trauma -history of TIA (2006), on aspirin/dipyridamole and statin -Hypertension -Hyperlipidemia -Ynu-hjytlrg-jbpimpjkc diabetes mellitus -History of GI bleed/peptic ulcer disease -BPH Plan -Continue to watch patient in telemetry -Neurochecks every 2 hours -Continue home meds: calcium, vitamin D, aggrenox, iron, finesteride, omeprazole , statin, flomax -Hold oral hypoglycemics Accuchecks TIDAC/HS with novolog SSI -Follow up on neurology consult for TIA -Patient had echocardiogram which showed a normal EF and stage I diastolic dysfunction, I'd bioprosthetic AV valve with normal pressures, and a moderate mitral thickening and annular calcification. -Carotid Doppler shows no evidence to suggest hemodynamically significant stenosis of greater than 50% diameter reduction. -Patient's hemoglobin A1c is 8.1. He is normally on metformin 0.5 twice a day, glipizide, sitagliptin at home. His metformin will need to be increased to 1 g twice a day. His lipid panel shows elevated triglycerides of 445, cholesterol 342, LDL of 195, HDL 43, cholesterol to HDL ratio of 8. Patient was on rosuvastatin before being admitted. He will need adjustment of this cholesterol regimen. -Patient was on Aggrenox because he could not take aspirin without bleeding. We will follow-up suggestions from neuro for new medication regimen as he has appeared to have a breakthrough TIA. -Pain control with hydrocodone -Heart Healthy Diet -DVT Ppx with subcutaneous heparin -FULL CODE Problem List: 1. TIA (transient ischemic attack) Pain Ratin Pain Location: na Pain Goal: Remain pain free Pain Plan: na Tomorrow's Labs & Rationales: Nancy Post 01/14/18 1326: Attending MD Review Statement Attending Statement Attending MD Statement: examined this patient, discuss w/resident/PA/FLEET MAINTENANCE MANAGER, agreed w/resident/PA/FLEET MAINTENANCE MANAGER, reviewed EMR data (avail), discussed with nursing, discussed with case mgmt Attending Assessment/Plan: TIA- symptoms recovered. awaiting neuro input. cont on aggrenox for now. May be a candidate to switch to plavix. Dyslipidemia/ hypertriglyceridemia- pt put on high dose statin and will d/w neuro if ok to add lopid . DM- uncontrolled. AIc of 8.1. pt counselled about better glycemic control. will increase metformin to 1gm bid at discharge.
--- NOTE | 2018-01-14 11:49 | ECHOCARDIOGRAM REPORT ---
REINA GREGG Age: 77 : 1940 Gender: M Exam Date: 01/13/2018 16:53 Exam Location: [address] Ht (in): 68 Wt (lb): 172 BSA: 1.95 BP: 132 / 72 Ordering Physician: Mc Moy MD Referring Physician: Mc Moy MD Technologist: Monika Tobias [facility] Room Number: 179-02 Indications: Stroke Rhythm: Sinus Technical Quality: Good FINDINGS Left Ventricle Normal size left ventricle. Moderate concentric left ventricular hypertrophy. Normal left ventricular ejection fraction visually estimated at>65 %. No obvious regional wall motion abnormalities. Abnormal relaxation filling pattern of the left ventricle for age (stage 1 diastolic dysfunction). Right Ventricle The right ventricle is normal in size and function. Right Atrium The right atrium is normal in size. Left Atrium The left atrium is normal in size. The interatrial septum is intact. Mitral Valve Moderate thickening/calcification of the mitral valve leaflets. Moderate mitral annular calcification. Trace mitral regurgitation. Aortic Valve There is a bioprosthetic aortic valve which is not well visualized. Gradient across the valve is within the expected range. There is no aortic regurgitation. Tricuspid Valve The tricuspid valve is normal in structure and function. There is trace tricuspid regurgitation. Unable to estimate the right ventricular systolic pressure. Pulmonic Valve Structurally normal pulmonic valve. There isno pulmonic regurgitation. Pericardium Normal pericardium without effusion. No pleural effusion. Great Vessels Normal aortic root dimension. The aortic arch and great vessels are not well seen. CONCLUSIONS Moderate concentric left ventricular hypertrophy. Normal left ventricular ejection fraction visually estimated at>65 %. Abnormal relaxation filling pattern of the left ventricle for age (stage 1 diastolic dysfunction). The left atrium is normal in size. Moderate thickening/calcification of the mitral valve leaflets. Moderate mitral annular calcification. There is a bioprosthetic aortic valve which is not well visualized. Gradient across the valve is within the expected range. There is no aortic regurgitation. Unable to estimate the right ventricular systolic pressure. Compared to previous echocardiogram of 04/25/2016 bioprosthetic aortic valve is now present and appears to be functioning normally. Eusebio Richard M.D. (Electronically Signed) Final Date: 14 January 2018 11:48 MEASUREMENTS (Male / Female) Normal Values 2D ECHO LV Diastolic Diameter PLAX 2.7 cm 4.2 - 5.9 / 3.9 - 5.3 cm LV Systolic Diameter PLAX 1.7 cm 2.1 - 4.0 cm LV Fractional Shortening PLAX 37.0 % 25 - 46 % LV Ejection Fraction 2D Teich 69.0 % IVS Diastolic Thickness 1.4 cm LVPW Diastolic Thickness 1.3 cm LV Relative Wall Thickness 1.0 RV Internal Dim ED PLAX 2.7 cm 1.9 - 3.8 cm LVOT Diameter 1.8 cm Aortic Root Diameter 2.6 cm LA Systolic Diameter LX 3.3 cm 3.0 - 4.0 / 2.7 - 3.8 cm LA Volume 42.0 cm 18 - 58 / 22 - 52 cm Ascending Aorta Diameter 3.5 cm DOPPLER AV Peak Velocity 225.0 cm/s AV Peak Gradient 20.3 mmHg AV Mean Velocity 144.0 cm/s AV Mean Gradient 10.0 mmHg AV Velocity Time Integral 49.7 cm LVOT Peak Velocity 130.0 cm/s LVOT Peak Gradient 6.8 mmHg LVOT Mean Velocity 92.8 cm/s LVOT Mean Gradient 4.0 mmHg LVOT Velocity Time Integral 29.8 cm LVOT Stroke Volume 75.8 cm AV Area Cont Eq vti 1.5 cm AV Area Cont Eq pk 1.5 cm MV Peak Velocity 145.0 cm/s MV Peak Gradient 8.4 mmHg MV Mean Velocity 67.0 cm/s MV Mean Gradient 2.0 mmHg Mitral E Point Velocity 80.8 cm/s Mitral A Point Velocity 128.0 cm/s Mitral E to A Ratio 0.6 MV PHT Velocity 95.0 cm/s MV Deceleration Castro 442.0 cm/s MV Pressure Half Time 64.5 ms MV Area PHT 3.4 cm MV Deceleration Time 380.0 ms PV Peak Velocity 123.0 cm/s PV Peak Gradient 6.1 mmHg PV Mean Velocity 87.3 cm/s PV Mean Gradient 3.0 mmHg PV Velocity Time Integral 27.7 cm LV E' Lateral Velocity 9.7 cm/s Mitral E to LV E' Lateral Ratio 8.4 LV E' Septal Velocity 4.8 cm/s Mitral E to LV E' Septal Ratio 16.9
[2018-01-14] MEDS ORDERED: METFORMIN HCL1000 M1 PO ×2 (14:13→16:14)
[2018-01-14 14:38] VITALS: BP 122/56
--- NOTE | 2018-01-14 15:29 | Cons- Neurology ---
General Information and HPI Consulting Request Date of Consult: 01/14/18 Requested By: Caroline Moser MD Reason for Consult: Left arm and face numbness, transient Source of Information: patient, old records Exam Limitations: no limitations History of Present Illness: 77-year-old [employer] with no prior neurologic history developed numbness in the right thumb which spread over a minute or so through the hand and wrist then appeared in the left face. He was at cardiac rehab and was sent to the ER. Symptoms resolved and an estimated 40 minutes. He denies any associated headache, weakness or difficulty with speech. At this time he feels completely back to normal He believes he is on Aggrenox but is uncertain if he takes 1 or 2 tablets daily. He was also uncertain if he is on a statin or not even though the medical record lists rosuvastatin Allergies/Medications Allergies: Coded Allergies: aspirin (PLAIN ASA MAKES PT BLEED PER PT 01/10/18) ibuprofen (PER PT DOESNT TAKE 01/10/18) procaine (HEART RACES 01/10/18) Home Med List: Calcium Carbonate/Vitamin D3 (Caltrate 600 + D Tablet) 600 MG-800 TABLET 1 TAB PO DAILY SUPPLEMENT (Reported) Cyanocobalamin (Vitamin B-12) 1,000 MCG TABLET 1 TAB PO DAILY SUPPLEMENT ( Reported) Dipyridamole W/ Aspirin (Aggrenox 25 MG-200 MG Capsule) 25 MG-200 MG CPMP.12HR 1 CAP PO BID BLOOD THINNER (Reported) Ferrous Sulfate 325 MG (65 MG IRON) TABLET 1 TAB PO DAILY SUPPLEMENT ( Reported) Finasteride 5 MG TABLET 1 TAB PO DAILY PROSTATE (Reported) Glipizide 5 MG TABLET 1 TAB PO BID DM (Reported) Hydrocodone/Acetaminophen (Hydrocodon-Acetaminophen 5-325) 5 MG-325 MG TABLET 1 TAB PO 5XDAILY PRN PAIN (Reported) Lactobacillus Acidophilus (Probiotic) (Unknown Strength) CAPSULE (Unknown Dose ) PO DAILY PROBIOTIC (Reported) Lutein 20 MG TABLET 1 TAB PO DAILY SUPPLEMENT (Reported) Metformin HCl 1,000 MG TABLET 1 TAB PO BID DIABETES Metoprolol Tartrate 25 MG TABLET 1 TAB PO BID HEART/BP (Reported) Multivitamin (Daily Multiple Vitamin) 1 EACH TABLET 1 TAB PO 1200 SUPPLEMENT (Reported) [place]-3S/Dha/Epa/Fish Oil (Fish Oil 1,000 MG Softgel) (Unknown Strength) CAPSULE (Unknown Dose) PO TID SUPPLEMENT (Reported) Omeprazole 40 MG CAPSULE.DR 1 CAP PO DAILY GI (Reported) Rosuvastatin Calcium (Crestor) (Unknown Strength) TABLET (Unknown Dose) PO QPM CHOLESTEROL (Reported) Saxagliptin (Onglyza) 5 MG TABLET 1 TAB PO DAILY DM (Reported) Tamsulosin HCl (Flomax) 0.4 MG CAP.ER.24H 1 CAP PO QPM PROSTATE (Reported) Ubidecarenone (Co Q-10) 100 MG CAPSULE 1 CAP PO DAILY SUPPLEMENT (Reported) Current Medications: Current Medications Sig/Tyesha Start time Last Medication Dose Route Stop Time Status Admin Acetaminophen 650 MG Q6P PRN 01/12 224 AC PO Atorvastatin Calcium 80 MG 1700 01/13 1700 AC 01/13 PO 1745 Calcium/Vitamin D 500 MG DAILY 01/13 09 AC 01/14 PO 0836 Cyanocobalamin 1,000 MCG DAILY 01/13 0900 AC 01/14 PO 0835 Dipyridamole/Aspirin 1 CAP BID 01/12 2300 AC 01/14 PO 0835 Docusate Sodium 100 MG DAILY 01/13 0900 AC 01/14 PO 0834 Ferrous Sulfate 325 MG DAILY 01/13 0900 AC 01/13 PO 0749 Finasteride 5 MG DAILY 01/13 09 AC 01/14 PO 0835 Heparin Sodium 5,000 UNIT Q8 01/13 06 AC 01/14 (Porcine) SC 1247 Hydrocodone Bitart/ 1 TAB Q4 HRS NEEDED PRN 01/12 2245 AC 01/14 Acetaminophen PO 1249 Insulin Aspart 0 TIDAC 01/13 08 AC 01/14 SC 1245 Metoprolol Tartrate 25 MG BID 01/12 2300 AC 01/14 PO 0835 Multivitamins 1 TAB 1200 01/13 1200 AC 01/14 Therapeutic PO 1245 Omeprazole 40 MG DAILY AC 01/13 0700 AC 01/14 PO 0552 Polyethylene Glycol 17 GM DAILY PRN 01/12 2245 AC 01/13 PO 0640 Senna 187 MG AT BEDTIME 01/13 2100 AC 01/13 PO 204 Tamsulosin HCl 0.4 MG QPM 01/13 2100 AC 01/13 PO 2050 Review of Systems Review of Systems: On the complete medical ROS he has no complaints except for pain in the toes on the right. Pertinent negatives are the absence of any chest pain palpitations or dyspnea. 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 aortic valve replacement Family History Relations & Conditions If Any: grandmother FH: diabetes mellitus Psychosocial History Where Do You Live? Home Services at Home: None Smoking Status: Former Smoker Exam & Diagnostic Data Vital Signs and I&O Vital Signs Date Time Temp Pulse Resp B/P B/P Pulse O2 O2 Flow FiO2 Mean Ox Delivery Rate 01/14 1438 98.3 78 18 122/56 97 Room Air 01/14 0835 75 138/72 01/14 0600 98.2 75 18 138/72 93 01/136 97.5 77 18 110/58 96 Room Air 01/13 2051 79 110/58 01/13 2051 77 110/58 Intake & Output 01/14 1600 01/14 0800 01/14 0000 Intake Total 400 Output Total Balance 400 Intake, Oral 400 Patient 173 lb Weight Weight Bed scale Measurement Method Physical Exam: On exam the patient appears to be in good general condition in no distress No carotid bruits or murmur. Peripheral pulses intact. Alert, oriented, no language errors or dysarthria, normal recall and general fund of knowledge Visual smith, eye movements, pupillary light responses normal Lower cranial nerves normal Motor exam: No weakness, abnormality of tone or drift and no dyspraxia either upper extremity Sensation intact to touch temperature and vibration in both hands No cerebellar signs Gait not tested Tendon reflexes normal and symmetric, no pathologic reflexes Last 48 Hours of Lab Results: Laboratory Tests 01/14 01/13 0642 0654 Chemistry Sodium (137 - 145 mmol/L) 137 138 Potassium (3.5 - 5.1 mmol/L) 4.2 4.4 Chloride (98 - 107 mmol/L) 100 99 Carbon Dioxide (22 - 30 mmol/L) 23 25 Anion Gap (5 - 16) 15 13 BUN (9 - 20 mg/dL) 23 H 27 H Creatinine (0.7 - 1.2 mg/dL) 1.2 1.3 H Estimated GFR (>60 ml/min) 59 L 53 L BUN/Creatinine Ratio (7 - 25 %) 19.2 20.8 Hemoglobin A1c (4.2 - 5.8 %) 8.1 H Magnesium (1.6 - 2.3 mg/dL) 1.5 L Triglycerides (<150 mg/dL) 445 H Cholesterol (< 200 MG/DL) 342 H LDL Cholesterol Direct (<100 mg/dL) 195.42 H LDL Cholesterol, Calc (65 - 129 mg/dL) ND HDL Cholesterol (40 - 60 mg/dL) 43 Cholesterol/HDL Ratio (0.00 - 4.88 %) 8.0 H Hematology CBC w Diff NO MAN DIFF REQ WBC (4.8 - 10.8 /CUMM) 8.4 RBC (4.70 - 6.10 /CUMM) 4.53 L Hgb (14.0 - 18.0 G/DL) 13.5 L Hct (42 - 52 %) 40.2 L MCV (80.0 - 94.0 FL) 88.8 MCH (27.0 - 31.0 PG) 29.9 MCHC (33.0 - 37.0 G/DL) 33.7 RDW (11.5 - 14.5 %) 13.8 Plt Count (130 - 400 /CUMM) 175 MPV (7.4 - 10.4 FL) 10.2 Gran % (42.2 - 75.2 %) 65.8 Lymphocytes % (20.5 - 51.1 %) 24.9 Monocytes % (1.7 - 9.3 %) 8.0 Eosinophils % (0 - 5 %) 1.0 Basophils % (0.0 - 2.0 %) 0.3 Absolute Granulocytes (1.4 - 6.5 /CUMM) 5.5 Absolute Lymphocytes (1.2 - 3.4 /CUMM) 2.1 Absolute Monocytes (0.10 - 0.60 /CUMM) 0.7 H Absolute Eosinophils (0.0 - 0.7 /CUMM) 0.1 Absolute Basophils (0.0 - 0.2 /CUMM) 0 07/23 1600 Chemistry Sodium (137 - 145 mmol/L) 139 Potassium (3.5 - 5.1 mmol/L) 4.3 Chloride (98 - 107 mmol/L) 100 Carbon Dioxide (22 - 30 mmol/L) 28 Anion Gap (5 - 16) 12 BUN (9 - 20 mg/dL) 30 H Creatinine (0.7 - 1.2 mg/dL) 1.3 H Estimated GFR (>60 ml/min) 53 L BUN/Creatinine Ratio (7 - 25 %) 23.1 Glucose (65 - 99 mg/dL) 141 H Calcium (8.4 - 10.2 mg/dL) 10.2 Total Bilirubin (0.2 - 1.3 mg/dL) 0.5 AST (17 - 59 U/L) 23 ALT (21 - 72 U/L) 17 L Alkaline Phosphatase (< 127 U/L) 58 Total Protein (6.3 - 8.2 g/dL) 7.5 Albumin (3.5 - 5.0 g/dL) 4.5 Globulin (1.9 - 4.2 gm/dL) 3.0 Albumin/Globulin Ratio (1.1 - 2.2 %) 1.5 Coagulation PT (9.4 - 12.5 SEC) 10.9 INR (0.90 - 1.17) 1.00 Hematology CBC w Diff NO MAN DIFF REQ WBC (4.8 - 10.8 /CUMM) 7.9 RBC (4.70 - 6.10 /CUMM) 4.57 L Hgb (14.0 - 18.0 G/DL) 13.5 L Hct (42 - 52 %) 40.6 L MCV (80.0 - 94.0 FL) 88.9 MCH (27.0 - 31.0 PG) 29.6 MCHC (33.0 - 37.0 G/DL) 33.4 RDW (11.5 - 14.5 %) 13.8 Plt Count (130 - 400 /CUMM) 181 MPV (7.4 - 10.4 FL) 9.6 Gran % (42.2 - 75.2 %) 65.2 Lymphocytes % (20.5 - 51.1 %) 22.8 Monocytes % (1.7 - 9.3 %) 10.3 H Eosinophils % (0 - 5 %) 1.4 Basophils % (0.0 - 2.0 %) 0.3 Absolute Granulocytes (1.4 - 6.5 /CUMM) 5.1 Absolute Lymphocytes (1.2 - 3.4 /CUMM) 1.8 Absolute Monocytes (0.10 - 0.60 /CUMM) 0.8 H Absolute Eosinophils (0.0 - 0.7 /CUMM) 0.1 Absolute Basophils (0.0 - 0.2 /CUMM) 0 Imaging/Other Studies: Carotid Dopplers: Plaque is present in the internal carotid arteries but velocity measurements are normal and there is no evidence to suggest a hemodynamically significant stenosis of greater than 50% diameter reduction. CT scan of head: Stable examination without evidence of acute intracranial abnormality. Chronic right cerebellar infarct. Few scattered chronic small vessel ischemic changes. Echocardiogram: Moderate concentric left ventricular hypertrophy. Normal left ventricular ejection fraction visually estimated at>65 %. Abnormal relaxation filling pattern of the left ventricle for age (stage 1 diastolic dysfunction). The left atrium is normal in size. Moderate thickening/calcification of the mitral valve leaflets. Moderate mitral annular calcification. There is a bioprosthetic aortic valve which is not well visualized. Gradient across the valve is within the expected range. There is no aortic regurgitation. Unable to estimate the right ventricular systolic pressure. Compared to previous echocardiogram of 04/25/2016 bioprosthetic aortic valve is now present and appears to be functioning normally. Assessment/Plan Assessment: TIA, right body sensory only syndrome, most likely subcortical small vessel event on the left Multiple vascular risk factors Recommendations: Aggrenox twice daily Atorvastatin 40 mg daily No additional neurodiagnostic testing recommended Patient may be discharged home when felt stable medically Please call back if further neurologic input is needed Consult Acknowledgment - Thank you for your consult request.
[2018-01-14] MEDS ORDERED: CRESTOR20 M2 PO ×3 (15:43→16:14)
[2018-01-14] MEDS ORDERED: CRESTOR5 M1 PO (15:45)
== END 2018-01-14 17:15 | DRG 69 ==
LOC: ERH 15:30 → 1NO 18:38 → ERHI 18:38 → 1NO 18:38 → ENRESERV 20:05 → ENTRNSPT 20:35 → EDTRNSPTSTS 20:37 → CMPTRNSPT 20:57 → 1NO 20:57 → ENPENDDIS 01-14 16:05 → 1NO 01-14 17:15
PROVIDERS: Emergency Medicine; Internal Medicine Interventional Cardiology
DX: G45.9 Transient cerebral ischemic attack, unspecified (principal); R19.7 Diarrhea, unspecified; R29.810 Facial weakness; S30.0XXA Contusion of lower back and pelvis, initial encounter; E11.9 Type 2 diabetes mellitus without complications; N40.0 Benign prostatic hyperplasia without lower urinary tract symptoms; Z79.01 Long term (current) use of anticoagulants; Z95.2 Presence of prosthetic heart valve; Z88.6 Allergy status to analgesic agent; Z88.8 Allergy status to other drugs, medicaments and biological substances; E78.5 Hyperlipidemia, unspecified; I10 Essential (primary) hypertension; Z79.84 Long term (current) use of oral hypoglycemic drugs; K27.9 Peptic ulcer, site unspecified, unspecified as acute or chronic, without hemorrhage or perforation
CPT/HCPCS: 1NSP; 36415; 36592; 71045; 82436; 93005; 93010; 93306; 99291; J1644

== ENCOUNTER 2018-02-12 18:45 | Observation (INO) | payer OTHER ==
[~2018-02-12] VITALS: Ht 172.7 cm; Wt 80.7 kg
[~2018-02-12 18:45] MED LIST changes: +CRESTOR20 M2 PO
--- NOTE | 2018-02-12 20:01 | RADIOLOGY REPORT ---
EXAMINATION: XR PORTABLE CHEST CLINICAL INFORMATION: AMS. COMPARISON: None TECHNIQUE: Portable frontal view of the chest was obtained. FINDINGS: The lungs are well-expanded and clear of acute process. The heart size and pulmonary vascularity is normal. There are median sternotomy sutures from previous intervention. No gross bony abnormality seen. IMPRESSION: Unremarkable chest exam.
--- NOTE | 2018-02-12 20:04 | CT SCAN REPORT ---
EXAMINATION: CT HEAD WITHOUT CONTRAST CLINICAL INFORMATION: Slurred speech. COMPARISON: CT head 01/12/2018 TECHNIQUE: Contiguous axial imaging was performed from the skull base to vertex without intravenous administration of contrast. DLP: 614.88 mGy-cm FINDINGS: Stable old central right cerebellar infarct unchanged since CAT scan 01/12/2018. There is no evidence of acute intracranial hemorrhage or acute territorial infarction. No abnormal mass effect or midline shift is seen. Gonzalez to white matter differentiation is well preserved. No extra-axial fluid collections are identified. There is atrophy with prominence of the ventricles and the sulci and hypodensity of the periventricular white matter due to chronic small vessel ischemic disease. The osseous structures and soft tissues are normal. The mastoid air cells and visualized portions of the paranasal sinuses are well aerated. IMPRESSION: No acute intracranial pathology. 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
[2018-02-12] MEDS ORDERED: GLUCOPHAGE1000 M1 PO (20:05)
[2018-02-12 20:17] LABS: ABSOLUTE BASOPHIL COUNT 0 /CUMM (0.0-0.2); ABSOLUTE EOSINOPHIL COUNT 0.2 /CUMM (0.0-0.7); ABSOLUTE GRANULOCYTE CT 5.8 /CUMM (1.4-6.5); ABSOLUTE LYMPH COUNT 1.5 /CUMM (1.2-3.4); ABSOLUTE MONOCYTE COUNT 0.6 /CUMM (0.10-0.60); BASOPHIL % 0.3 % (0.0-2.0); EOSINOPHIL % 2.3 % (0-5); GRANULOCYTE % 71.1 % (42.2-75.2); HEMATOCRIT 34.3 % (42-52); MEAN CORPUSCULAR HGB 30.3 PG (27.0-31.0); MEAN CORPUSCULAR HGB CONC 33.9 G/DL (33.0-37.0); MEAN CORPUSCULAR VOLUME 89.4 FL (80.0-94.0); MEAN PLATELET VOLUME 9.4 FL (7.4-10.4); PLATELET COUNT 162 /CUMM (130-400); RBC DISTRIBUTION WIDTH 14.3 % (11.5-14.5); RED BLOOD CELL CT 3.83 /CUMM (4.70-6.10); WHITE BLOOD CELL COUNT 8.2 /CUMM (4.8-10.8)
--- NOTE | 2018-02-12 20:17 | ED GENERAL ADULT ---
History of Present Illness General Chief Complaint: General Adult Stated Complaint: PER FAMILY ? STROKE Source: patient, family Exam Limitations: no limitations Vital Signs & Intake/Output Vital Signs & Intake/Output Vital Signs Date Time Temp Pulse Resp B/P B/P Pulse O2 O2 Flow FiO2 Mean Ox Delivery Rate 02/12 2326 80 148/60 02/12 2326 80 148/60 02/12 2304 Room Air 02/12 2301 98.1 78 20 148/60 98 Room Air 02/12 2119 97.9 67 20 148/68 95 Room Air 02/12 1922 Room Air 02/12 1914 98.5 76 18 157/74 98 Room Air 02/12 1853 98.2 90 20 163/91 98 Room Air ED Intake and Output 02/13 0000 02/12 1200 Intake Total 60 Output Total 200 Balance -140 Intake, Oral 60 Output, Urine 200 Patient 178 lb Weight Weight Reported by Patient Measurement Method Allergies Coded Allergies: aspirin (PLAIN ASA MAKES PT BLEED PER PT 01/10/18) ibuprofen (PER PT DOESNT TAKE 01/10/18) procaine (HEART RACES 01/10/18) Reconcile Medications Calcium Carbonate/Vitamin D3 (Caltrate 600 + D Tablet) 600 MG-800 TABLET 1 TAB PO DAILY SUPPLEMENT (Reported) Cyanocobalamin (Vitamin B-12) 1,000 MCG TABLET 1 TAB PO DAILY SUPPLEMENT ( Reported) Dipyridamole W/ Aspirin (Aggrenox 25 MG-200 MG Capsule) 25 MG-200 MG CPMP.12HR 1 CAP PO BID BLOOD THINNER (Reported) Ferrous Sulfate 325 MG (65 MG IRON) TABLET 1 TAB PO DAILY SUPPLEMENT ( Reported) Finasteride 5 MG TABLET 1 TAB PO DAILY PROSTATE (Reported) Glipizide 5 MG TABLET 1 TAB PO BID DM (Reported) Hydrocodone/Acetaminophen (Hydrocodon-Acetaminophen 5-325) 5 MG-325 MG TABLET 1 TAB PO PRN PAIN (Reported) Lactobacillus Acidophilus (Probiotic) (Unknown Strength) CAPSULE (Unknown Dose ) PO DAILY PROBIOTIC (Reported) Lutein 20 MG TABLET 1 TAB PO DAILY SUPPLEMENT (Reported) Metformin HCl (Glucophage) 1,000 MG TABLET 1 TAB PO QAM DM (Reported) Metoprolol Tartrate 25 MG TABLET 1 TAB PO BID HEART/BP (Reported) Multivitamin (Daily Multiple Vitamin) 1 EACH TABLET 1 TAB PO 1200 SUPPLEMENT (Reported) [place]-3S/Dha/Epa/Fish Oil (Fish Oil 1,000 MG Softgel) (Unknown Strength) CAPSULE (Unknown Dose) PO TID SUPPLEMENT (Reported) Omeprazole 40 MG CAPSULE.DR 1 CAP PO DAILY GI (Reported) Rosuvastatin Calcium (Crestor) 20 MG TABLET 1 TAB PO DAILY CHOLESTEROL . Saxagliptin (Onglyza) 5 MG TABLET 1 TAB PO DAILY DM (Reported) Tamsulosin HCl (Flomax) 0.4 MG CAP.ER.24H 1 CAP PO QPM PROSTATE (Reported) Ubidecarenone (Co Q-10) 100 MG CAPSULE 1 CAP PO DAILY SUPPLEMENT (Reported) Triage Note: PT HERE WITH C/O DIFFICULTY WITH WORD FINDING AND RIGHT HAND WEAKNESS. PT WITH STRONG BILATERAL HAND GRASP. 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 NUEROS INTACT EXCEPT WORD FINDING DIFFICULTY. PT TAKEN TO ROOM. Triage Nurses Notes Reviewed? 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 The symptoms have pretty much resolved in the emergency department. Now his speech is normal. He is awake alert and oriented 3. 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 No headache or chest pain. Past History Travel History Traveled to [place] past 21 day No Medical History Any Pertinent Medical History? 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 aortic valve replacement Psychosocial History Who do you live with Spouse Services at Home None What is your primary language Czech Tobacco Use: Never used ETOH Use: denies use Illicit Drug Use: denies illicit drug use Family History Family History, If Any: grandmother FH: diabetes mellitus Hx Contributory? No Review of Systems Review of Systems Constitutional: Denies: fever. EENTM: Denies: visual changes. Respiratory: Denies: short of breath. Cardiovascular: Denies: chest pain. GI: Denies: abdominal pain. Genitourinary: Reports: no symptoms. Musculoskeletal: Reports: no symptoms. Skin: Reports: no symptoms. Neurological/Psychological: Reports: see HPI. Hematologic/Endocrine: Reports: no symptoms. Immunologic/Allergic: Reports: no symptoms. Physical Exam Physical Exam General Appearance: well developed/nourished, alert, awake, anxious, mild distress Head: atraumatic, normal appearance Eyes: Bilateral: normal appearance, PERRL, EOMI. Ears, Nose, Throat: normal pharynx, normal ENT inspection Neck: normal inspection, supple, full range of motion Respiratory: normal breath sounds, chest non-tender, no respiratory distress Cardiovascular: regular rate/rhythm Peripheral Pulses: 4+ radial (R), 4+ radial (L) Gastrointestinal: soft, non-tender Back: normal range of motion Extremities: normal inspection Neurologic/Psych: no motor/sensory deficits, awake, alert, oriented x 3 Skin: intact, normal color, warm/dry Core Measures ACS in differential dx? No CVA/TIA Diagnosis: Yes NIH Stroke Scale (24 Hours) NIH Stroke Scale (24 Hours) Response Value Level of Consciousness alert 0 LOC Questions answers both correctly 0 LOC Commands obeys both correctly 0 Best Gaze normal 0 Visual Velarde no visual loss 0 Facial Paresis normal 0 Motor Arm - Left no drift 0 Motor Arm - Right no drift 0 Motor Leg - Left no drift 0 Motor Leg - Right no drift 0 Limb Ataxia no ataxia 0 Sensory normal 0 Best Language no aphasia 0 Dysarthria normal articulation 0 Extinction and Inattention no neglect 0 Total 0 Date Last Known Well: 02/12/18 Time Last Known Well: 1800 Symptom start date: 02/12/18 Symptom start time: 1800 tPA Risk/Benefit discussion I have discussed the risks, benefits, and alternatives of Alteplase treatment including: - If given promptly, can resolve or have major improvement in stroke symptoms. - Bleeding (hemorrhage) is the most common risk that can occur. - Bleeding may occur into the brain and cause~long term care phlebotomist serious disability~ including - this is rare, affecting about 1% of patients. - Alternative treatments with proven benefit for patients with stroke include aspirin and care in a specialized unit where staff members pay careful attention to a variety of basic aspects of care. tPA given? No Reason tPA not given Medical Contraindication (symptoms resolved) Swallow Evaluation Pass Swallow eval date 02/12/18 Swallow eval time 1900 Sepsis Present: No Sepsis Focused Exam Completed? No Progress Differential Diagnoses I considered the following diagnoses in my evaluation of the patient: Plan of Care: Orders Procedure Date/time Status TROPONIN LEVEL 02/13 06 Active BASIC ELECTROLYTES PLUS BUN&CR 02/13 06 Active EKG 02/13 06 Active SPEECH EVALUATION 02/13 0029 Active PT Evaluate & Treat 02/13 29 Active Occupational Tx Eval & Treat 02/13 0029 Active Vital Signs 02/12 2249 Active Teach/Educate 02/12 2249 Active Pain Treatment and Response 02/12 2249 Active Nutritional Intake, Monitor 02/12 2249 Active Isolation 02/12 2249 Active Intake & Output 02/12 2249 Active Patient Care Conference 02/12 2249 Active Activity/Ambulation 02/12 2249 Active Pathway - chart 02/[address] in observation 02/13 2124 Active ED Holding Orders 02/12 2114 Active Vital Signs 02/12 2114 Active Code Status 02/12 2114 Active Patient Data 02/12 2110 Active Intake & Output 02/13 1928 Active Saline Lock 02/12 1923 Active TROPONIN LEVEL 02/12 1923 Complete PROTHROMBIN TIME 02/12 1923 Complete COMPREHENSIVE METABOLIC PANEL 02/12 1923 Complete CBC WITHOUT DIFFERENTIAL 02/12 1923 Complete EKG 02/12 1923 Active FingerStick- Glucose 02/12 1914 Active House Staff 02/12 UNK Active VTE Mechanical Prophylaxis 02/12 UNK Active Telemetry/Slot Tag Inserter 02/12 UNK Active NIH Stroke Scale 02/12 UNK Active Rubi Coma Scale 02/12 UNK Active Activity/Ambulation 02/12 UNK Active Current Medications Sig/Tyesha Start time Last Medication Dose Stop Time Status Admin Dipyridamole/Aspirin 1 CAP BID 02/13 09 AC (Aggrenox) Ferrous Sulfate 325 MG DAILY 02/13 09 AC (Feosol) Insulin Aspart 0 TIDAC 02/13 08 AC (NovoLOG) Omeprazole 40 MG DAILY AC 02/13 07 AC (Prilosec) Heparin Sodium 5,000 UNIT Q8 02/13 06 AC (Porcine) Atorvastatin Calcium 80 MG 1700 02/12 2300 AC 02/12 (Lipitor) 232 Finasteride 5 MG AT BEDTIME 02/12 2300 AC 02/12 (Proscar) 232 Hydrocodone Bitart/ 1 TAB Q6-PRN PRN 02/12 2300 AC 02/12 Acetaminophen 232 (Vicodin) Tamsulosin HCl 0.4 MG QPM 02/12 2300 AC 02/12 (Flomax) 2325 Metoprolol Tartrate 25 MG BID 02/12 2245 AC 02/12 (Lopressor) 2325 Acetaminophen 650 MG Q6-PRN PRN 02/12 2200 AC (Tylenol) Laboratory Tests 02/12/18 2000: Anion Gap 10, Estimated GFR 45 L, BUN/Creatinine Ratio 17.3, Glucose 170 H, Calcium 9.8, Total Bilirubin 0.5, AST 24, ALT 28, Alkaline Phosphatase 64, Troponin I < 0.01, Total Protein 7.1, Albumin 4.4, Globulin 2.7, Albumin/ Globulin Ratio 1.6, PT 11.6, INR 1.06, CBC w Diff NO MAN DIFF REQ, RBC 3.83 L, MCV 89.4, MCH 30.3, MCHC 33.9, RDW 14.3, MPV 9.4, Gran % 71.1, Lymphocytes % 18.6 L, Monocytes % 7.7, Eosinophils % 2.3, Basophils % 0.3, Absolute Granulocytes 5.8, Absolute Lymphocytes 1.5, Absolute Monocytes 0.6, Absolute Eosinophils 0.2, Absolute Basophils 0 Initial ED EKG: NSR Departure Departure Disposition: STILL A PATIENT Condition: Stable Clinical Impression Primary Impression: TIA (transient ischemic attack) Referrals: [facility]an Eusebio NAYAK (PCP/Family) Departure Forms: Customer Survey General Discharge Information Comments Head CT results shown below PATIENT: REINA GREGG PRESENT AGE: 77 PATIENT ACCOUNT NO: [id number] : 39 LOCATION: [facility] ORDERING PHYSICIAN: Jamar Lew DO SERVICE DATE: 02/12/18 EXAM TYPE: CAT - CT HEAD WO IV CONTRAST EXAMINATION: CT HEAD WITHOUT CONTRAST CLINICAL INFORMATION: Slurred speech. COMPARISON: CT head 01/12/2018 TECHNIQUE: Contiguous axial imaging was performed from the skull base to vertex without intravenous administration of contrast. DLP: 614.88 mGy-cm FINDINGS: Stable old central right cerebellar infarct unchanged since CAT scan 01/12/2018. There is no evidence of acute intracranial hemorrhage or acute territorial infarction. No abnormal mass effect or midline shift is seen. Gonzalez to white matter differentiation is well preserved. No extra-axial fluid collections are identified. There is atrophy with prominence of the ventricles and the sulci and hypodensity of the periventricular white matter due to chronic small vessel ischemic disease. The osseous structures and soft tissues are normal. The mastoid air cells and visualized portions of the paranasal sinuses are well aerated. IMPRESSION: No acute intracranial pathology. 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 DICTATED BY: Horacio Morris MD DATE/TIME DICTATED:02/12/181955 [employer] DATE/TIME TRANSCRIBED:02/12/181955 CONFIDENTIAL, DO NOT COPY WITHOUT APPROPRIATE AUTHORIZATION. <Electronically signed in Other Vendor System> SIGNED BY: Horacio Morris MD 02/12/182003 He is status post open heart surgery 08/12/2017. Observation Note Spoke With: Mc Morgan MD Physician Advisor Notified: JAMAR LEW DO Place Patient In: Non-ED OBS Care Area Rationale for Observation: Come for My rational for observation is as follows [the patient needs telemetry monitoring, neuro evaluations every 6 hours, neurology consultation should be considered]. Critical Care Note Critical Care Note Critical Care Time: 30-74 min
[2018-02-12 20:22] LABS: PT 11.6 SEC (9.4-12.5)
--- NOTE | 2018-02-12 21:40 | History & Physical ---
See Addendum Eren Navas 02/12/18 2138: General Information and HPI MD Statement: I have seen and personally examined REINA GREGG and documented this H&P. The patient is a 77 year old M who presented with a patient stated chief complaint of CONCERN FOR STROKE. Source of Information: patient, family, old records Exam Limitations: no limitations History of Present Illness: 77-year-old male with past medical history of hypertension, hyperlipidemia, diabetes, former smoker, h/o migraine, history of CVA (right cerebellar, date unknown), cardiac catheter, and bovine aortic valve replacement with several recent visits for TIAs who presents with a <1 hour history of upper extremity tingling, stumbling, and word finding difficulty. Patient states that his symptoms began around 1800 this evening, at which time he had just returned home and was bringing in groceries. At that time he noticed that he was stumbling around, and knew that "something was wrong". He states that he was experiencing right hand and right face numbness, which later progressed to left hand numbness. Patient was witnessed by his spouse, and she described an episode of "difficulty communicating". The patient described this as he knew what to say, but could not say it. The patient and deny slurred speech during this episode. Of note the patient has recently had 2 falls: one 2 days ago in which he stepped onto uneven ground, spun 360, and fell on his left shoulder, and the other 2 weeks before when he was sitting on a crate, stood up, and fell backwards onto the crate injuring his tailbone. Patient denies chest pain, shortness of breath, headache, dizziness, changes in bowel or bladder function. By the time the patient reached the emergency department, his symptoms had resolved. In the emergency department, the patient was found to have slightly elevated blood pressure, creatinine of 1.5 which is roughly his baseline, one negative troponin at this time, an unremarkable chest x-ray, and a head CT that showed an old prior right cerebellar infarct. He is being admitted to telemetry to monitor for concern of TIA/CVA. Allergies/Medications Allergies: Coded Allergies: aspirin (PLAIN ASA MAKES PT BLEED PER PT 01/10/18) ibuprofen (PER PT DOESNT TAKE 01/10/18) procaine (HEART RACES 01/10/18) Home Med list Calcium Carbonate/Vitamin D3 (Caltrate 600 + D Tablet) 600 MG-800 TABLET 1 TAB PO DAILY SUPPLEMENT (Reported) Cyanocobalamin (Vitamin B-12) 1,000 MCG TABLET 1 TAB PO DAILY SUPPLEMENT ( Reported) Dipyridamole W/ Aspirin (Aggrenox 25 MG-200 MG Capsule) 25 MG-200 MG CPMP.12HR 1 CAP PO BID BLOOD THINNER (Reported) Ferrous Sulfate 325 MG (65 MG IRON) TABLET 1 TAB PO DAILY SUPPLEMENT ( Reported) Finasteride 5 MG TABLET 1 TAB PO DAILY PROSTATE (Reported) Glipizide 5 MG TABLET 1 TAB PO BID DM (Reported) Hydrocodone/Acetaminophen (Hydrocodon-Acetaminophen 5-325) 5 MG-325 MG TABLET 1 TAB PO PRN PAIN (Reported) Lactobacillus Acidophilus (Probiotic) (Unknown Strength) CAPSULE (Unknown Dose ) PO DAILY PROBIOTIC (Reported) Lutein 20 MG TABLET 1 TAB PO DAILY SUPPLEMENT (Reported) Metformin HCl (Glucophage) 1,000 MG TABLET 1 TAB PO QAM DM (Reported) Metoprolol Tartrate 25 MG TABLET 1 TAB PO BID HEART/BP (Reported) Multivitamin (Daily Multiple Vitamin) 1 EACH TABLET 1 TAB PO 1200 SUPPLEMENT (Reported) Colon-3S/Dha/Epa/Fish Oil (Fish Oil 1,000 MG Softgel) (Unknown Strength) CAPSULE (Unknown Dose) PO TID SUPPLEMENT (Reported) Omeprazole 40 MG CAPSULE.DR 1 CAP PO DAILY GI (Reported) Rosuvastatin Calcium (Crestor) 20 MG TABLET 1 TAB PO DAILY CHOLESTEROL . 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 aortic valve replacement Past Family/Social History Family History Relations & Conditions if any grandmother FH: diabetes mellitus Psychosocial History Where do you live? Home Who Do You Live With? spouse Services at Home: None Primary Language: Zambian Smoking Status: Former Smoker ETOH Use: denies use Illicit Drug Use: denies illicit drug use Functional Ability ADLs Independent: dressing, eating, toileting, bathing. Ambulation: independent IADLs Independent: shopping, housework, finances, food prep, telephone, transportation , medication admin. Employment History Employment Retired Profession/Employer Review of Systems Review of Systems Constitutional: Reports: see HPI. Cardiovascular: Reports: see HPI. Musculoskeletal: Reports: see HPI. All Other Systems: Reviewed and Negative Exam & Diagnostic Data Last 24 Hrs of Vital Signs/I&O Vital Signs Date Time Temp Pulse Resp B/P B/P Pulse O2 O2 Flow FiO2 Mean Ox Delivery Rate 02/12 2301 98.1 78 20 148/60 98 Room Air 02/129 97.9 67 20 148/68 95 Room Air 02/12 1922 Room Air 02/12 1914 98.5 76 18 157/74 98 Room Air 02/12 1853 98.2 90 20 163/91 98 Room Air Physical Exam General Appearance Alert, Oriented X3, Cooperative, No Acute Distress Skin No Rashes, No Breakdown, No Significant Lesion Skin Temp/Moisture Exam: Warm/Dry HEENT Atraumatic, PERRLA, EOMI, Mucous Membr. moist/pink Neck Supple, No JVD, No thryomegaly Cardiovascular Regular Rate, Normal S1, Normal S2, Gallops, Rubs, AVR murmur Lungs Clear to Auscultation, Normal Air Movement Abdomen Normal Bowel Sounds, Soft, No Tenderness, No Masses Neurological Normal Speech, Strength at 5/5 X4 Ext, Normal Tone, Sensation Intact, Cranial Nerves 3-12 NL Extremities No Clubbing, No Cyanosis, No Edema Last 24 Hrs of Labs/Jr: Laboratory Tests 02/12/18 2000: Anion Gap 10, Estimated GFR 45 L, BUN/Creatinine Ratio 17.3, Glucose 170 H, Calcium 9.8, Total Bilirubin 0.5, AST 24, ALT 28, Alkaline Phosphatase 64, Troponin I < 0.01, Total Protein 7.1, Albumin 4.4, Globulin 2.7, Albumin/ Globulin Ratio 1.6, PT 11.6, INR 1.06, CBC w Diff NO MAN DIFF REQ, RBC 3.83 L, MCV 89.4, MCH 30.3, MCHC 33.9, RDW 14.3, MPV 9.4, Gran % 71.1, Lymphocytes % 18.6 L, Monocytes % 7.7, Eosinophils % 2.3, Basophils % 0.3, Absolute Granulocytes 5.8, Absolute Lymphocytes 1.5, Absolute Monocytes 0.6, Absolute Eosinophils 0.2, Absolute Basophils 0 Diagnostic Data EKG Results unknown CXR Results Unremarkable exam Other Results CT head - No acute intracranial pathology. 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 Assessment/Plan Assessment: 77-year-old male with past medical history of hypertension, hyperlipidemia, diabetes, former smoker, h/o migraine, history of CVA (right cerebellar, date unknown), cardiac catheter, and bovine aortic valve replacement with several recent visits for TIAs who presents with a <1 hour history of upper extremity tingling, stumbling, and word finding difficulty. TIA HTN HLD DM -Accu-Cheks 3 times daily before meals needs once per day BPH -Continue finasteride and Flomax Anemia -continue ferrous sulfate home medication DVT Prophylaxis: Subcu heparin Heart healthy diet Patient is full code As Ranked By This Provider Problem List: 1. TIA (transient ischemic attack) 2. Expressive dysphasia 3. Gait instability 4. Confusion 5. Hypertension 6. Hyperlipidemia 7. Diabetes mellitus, type 2 8. Musculoskeletal pain of left upper extremity 9. Musculoskeletal back pain Core Measures/Misc (03/09) Acute Coronary Syndrome ACS Diagnosis: No Congestive Heart Failure Congestive Heart Failure Diagnosis No Cerebrovascular Accident CVA/TIA Diagnosis: Yes NIH Stroke Scale: Total 0 Date Last Known Well: 02/12/18 Time Last Known Well: 1800 Symptom Start Date: 02/12/18 Symptom Start Time: 1800 tPA Risk/Benefit discussion I have discussed the risks, benefits, and alternatives of Alteplase treatment including: - If given promptly, can resolve or have major improvement in stroke symptoms. - Bleeding (hemorrhage) is the most common risk that can occur. - Bleeding may occur into the brain and cause~mcc serious disability~ including - this is rare, affecting about 1% of patients. - Alternative treatments with proven benefit for patients with stroke include aspirin and care in a specialized unit where staff members pay careful attention to a variety of basic aspects of care. tPA given? No Reason tPA not ordered Medical Contraindication Swallow Evaluation Pass Current/Past Hx AFib/AFlutter No VTE (View Protocol) VTE Risk Factors Age>40 No Mechanical VTE Prophylaxis d/t N/A MechProphylax Ordered No VTE Pharm Prophylaxis d/t NA PharmProphylax ordered Sepsis (View protocol) Sepsis Present: No If YES complete Sepsis Event Note If YES complete Sepsis Event Note Ruben Vázquez MD 02/12/18 2237: Core Measures/Misc (03/09) Sepsis (View protocol) If YES complete Sepsis Event Note If YES complete Sepsis Event Note Resident Review Statement Resident Statement: examined this patient, discussed with culinary intern, agreed with culinary intern, reviewed EMR data (avail) Other Findings: 77 year old male [employer] with PMH of HTN, HLD, DM, former smoker, h /o PUD/GI bleed on NSAIDs, h/o complex migraine, h/o CVA (right cerebellar), cardiac cath and bioprosthetic AVR with several admissions for TIAs most recently 12/2017 at presented with complaints of right hand and face numbness then left hand numbness that last less than one hour and resolved by the time of arrival in the ED. His family also reports transient expressive dysphasia but no dysarthria, headache, or focal weakness. He does have several recent falls and it is unclear if these were due to neurological events, gait instability from prior cerebellar infarct, or just mechanical in nature as he states they happened on uneven terrain. Today his symptoms, occurred after arriving home from cardiac rehabilitation. His only complaints at the time of my evaluation were left shoulder and lumbar back pain related to recent falls. He had no neurological deficits and an NIHSS of 0. EKG-sinus rhythm, lateral TWI present on prior EKG, Head CT was negative for any acute intracranial pathology or infarction. Labs Hgb 11.6, Hct 34.4, BUN 26, Cr 1.5, glucose 170, troponin <0.01. Physical exam afebrile, HR 70s-80s, RR 18 BP 156/74, SpO2 96 on RA. Gen AAOx3, NAD, CV RRR S1 S2 no murmurs, no carotid bruits, normal peripheral pulses, no edema, lungs CTA, Abd soft NT/ND bs+ Neuro NIHSS 0, CN 2-12 intact, sensation and strength wnl except 4/5 left shoulder flexion limited by pain, no dysarthria or ataxia, gait not assessed 77 year old male w/ PMH of HTN, bioprosthetic AVR, HLD, DM, h/o PUD/GI bleed on NSAIDs, h/o cerebellar CVA, and several admissions for TIAs presents with transient dysphasia, sensory complaints that lasted less than one hour and several recent falls. His falls may be mechanical, due to TIA, or related to his chronic cerebellar infarct. He is on aggrenox and statin currently and neurologically intact at the time of evaluation. He was placed in observation status on telemetry. TIA Observe on telemetry, monitor for arrhythmias Neurochecks Q4H, GCS and NIHSS Continue aggrenox BID Continue statin therapy, patient takes crestor 20mg at home, should be increased to 40mg Start atorvastatin 80mg Unremarkable echocardiogram and carotid dopplers on prior admission Neurology consultation PT/OT evaluation for recent falls and LUE pain with shoulder flexion, speech for dysphasia Repeat troponin and EKG in the morning, 1st troponin negative with old lateral TWI on EKG H/O AVR/HTN: Continue metoprolol, statin, aggrenox Mixed dyslipidemia Continue crestor Consider adding fibrate LDL ~200 and triglycerides ~450, significantly elevated on prior lipid panel DM Acchuchecks TIDAC Novolog sliding scale Hold metformin, patient was discharged on BID but taking QD Last hemoglobin A1C 8.1, 12/2017 BPH: Continue finasteride and tamsulosin Anemia: Hemoglobin 11.6, hematocrit 34.3 on presentation iron deficiency, MCV ~90 Continue ferrous sulfate supplementation Heart healthy diet DVT ppx-heparin sc Full code Mc Morgan MD 02/13/18 0005: Core Measures/Misc (03/09) Sepsis (View protocol) If YES complete Sepsis Event Note If YES complete Sepsis Event Note Attending MD Review Statement Attending Statement Attending MD Statement: examined this patient, discuss w/resident/PA/SHOT HOLE DRILLER, agreed w/resident/PA/SHOT HOLE DRILLER Attending Assessment/Plan: Patient is seen and examined independently by me. Care plan discussed with medical transcription and/or resident. I agree with the physical exam findings and plan of care as outlined above with the following changes and additions. 77 yo M with history of HTN, HLD, DM, bioprosthetic AVR, TIA 09/2017 & 12/2017, GIB/PUD due to NSAID 50 yrs ago, presented with slurred speech and right hand weakness. Yesterday, he had a mechanical fall when walking on uneven ground. He went to [place] ED due to left shoulder pain. He was discharged after X ray showed no fracture. At about 6 pm tonight, he has right hand weakness & tingling, right upper facial tingling and slurred speech with difficulty to find word. His symptoms resolved in the ED. Of note, 01/13/18 Echocardiogram shows LVH with EF>65%. Carotid Doppler shows no significant hemodynamic stenosis. On exam, he is awake, alert and oriented x3. Speech is normal. Sensory grossly intact. Muscle strength 5/5 bilaterally. In the ED, troponin <0.01. CXR shows no acute infiltrate or edema. CT head shows old right CB infarct and no acute intracranial abnormality. Patient is placed on observation to [facility] for TIA. On Aggrenox and statin. Speech therapy, PT/OT and Neuro consult. Mc Morgan MD FACP
[2018-02-12 23:01] VITALS: BP 148/60
[2018-02-13 06:00] VITALS: BP 140/72
--- NOTE | 2018-02-13 11:13 | PN- Att Addend ---
Attending Addendum Attending Brief Note 77M PMH hypertension, hyperlipidemia, diabetes, former smoker, h/o migraine, history of CVA (right cerebellar, date unknown),and bovine aortic valve replacement presenting with an episode of TIA. Had left shoulder pain after a fall, went to another hospital with negative workup, after discharge experienced a few minutes of right face and hand paresthesia with word finding difficulties. Symptoms have since resolved and he is asymptomatic with a normal neurological exam. CT shows no evidence of acute stroke. 1. TIA Plan - Continue on telemetry - Neurology consult - MRI head - Continue Aggrenox for now, will defer to neurology for adjustment of anti- platelet agents - Continue high dose statin - Had an echo a month ago, no need to repeat - OT and speech therapy consults - DVT PPx - Anticipated discharge later today or tomorrow morning
--- NOTE | 2018-02-13 12:36 | Cons- Neurology ---
General Information and HPI Consulting Request Date of Consult: 02/13/18 Requested By: Mc Morgan MD History of Present Illness: 77-year-old male admitted with transient speech disturbance and paresthesias of the hands bilaterally. The patient states that over the past several years he has had perhaps as many as 10 episodes of transient speech disturbance and tingling of the hands. This generally affects the right hand more than the left however both are typically involved. He was admitted after another such event with inability to communicate properly for several hours as well as the paresthesias. He has been apparently evaluated for these problems on multiple occasions. Prior CT has only showed a chronic right cerebellar infarct which was again visualized upon this admission. He is currently maintained on Aggrenox and Crestor. There has been no trauma or fever. No reported seizure activity. Allergies/Medications Allergies: Coded Allergies: aspirin (PLAIN ASA MAKES PT BLEED PER PT 01/10/18) ibuprofen (PER PT DOESNT TAKE 01/10/18) procaine (HEART RACES 01/10/18) Home Med List: Calcium Carbonate/Vitamin D3 (Caltrate 600 + D Tablet) 600 MG-800 TABLET 1 TAB PO DAILY SUPPLEMENT (Reported) Cyanocobalamin (Vitamin B-12) 1,000 MCG TABLET 1 TAB PO DAILY SUPPLEMENT ( Reported) Dipyridamole W/ Aspirin (Aggrenox 25 MG-200 MG Capsule) 25 MG-200 MG CPMP.12HR 1 CAP PO BID BLOOD THINNER (Reported) Ferrous Sulfate 325 MG (65 MG IRON) TABLET 1 TAB PO DAILY SUPPLEMENT ( Reported) Finasteride 5 MG TABLET 1 TAB PO DAILY PROSTATE (Reported) Glipizide 5 MG TABLET 1 TAB PO BID DM (Reported) Hydrocodone/Acetaminophen (Hydrocodon-Acetaminophen 5-325) 5 MG-325 MG TABLET 1 TAB PO PRN PAIN (Reported) Lactobacillus Acidophilus (Probiotic) (Unknown Strength) CAPSULE (Unknown Dose ) PO DAILY PROBIOTIC (Reported) Lutein 20 MG TABLET 1 TAB PO DAILY SUPPLEMENT (Reported) Metformin HCl (Glucophage) 1,000 MG TABLET 1 TAB PO QAM DM (Reported) Metoprolol Tartrate 25 MG TABLET 1 TAB PO BID HEART/BP (Reported) Multivitamin (Daily Multiple Vitamin) 1 EACH TABLET 1 TAB PO 1200 SUPPLEMENT (Reported) [place]-3S/Dha/Epa/Fish Oil (Fish Oil 1,000 MG Softgel) (Unknown Strength) CAPSULE (Unknown Dose) PO TID SUPPLEMENT (Reported) Omeprazole 40 MG CAPSULE.DR 1 CAP PO DAILY GI (Reported) Rosuvastatin Calcium (Crestor) 20 MG TABLET 1 TAB PO DAILY CHOLESTEROL . Saxagliptin (Onglyza) 5 MG TABLET 1 TAB PO DAILY DM (Reported) Tamsulosin HCl (Flomax) 0.4 MG CAP.ER.24H 1 CAP PO QPM PROSTATE (Reported) Ubidecarenone (Co Q-10) 100 MG CAPSULE 1 CAP PO DAILY SUPPLEMENT (Reported) Review of Systems Review of Systems: Review of systems is notable for some left upper extremity pain as well as the self-limited speech disturbance and paresthesias. 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 aortic valve replacement Family History Relations & Conditions If Any: grandmother FH: diabetes mellitus Psychosocial History Where Do You Live? Home Who Do You Live With? spouse Services at Home: None Primary Language: Tamazight Smoking Status: Former Smoker ETOH Use: denies use Illicit Drug Use: denies illicit drug use Functional Ability ADLs Independent: dressing, eating, toileting, bathing. Ambulation: independent IADLs Independent: shopping, housework, finances, food prep, telephone, transportation , medication admin. Employment History Employment: Retired Profession/Employer: [employer] Exam & Diagnostic Data Vital Signs and I&O Vital Signs Date Time Temp Pulse Resp B/P B/P Pulse O2 O2 Flow FiO2 Mean Ox Delivery Rate 02/13 0840 74 140/72 02/13 0600 98.8 74 18 140/72 97 Room Air 02/12 2326 80 148/60 02/12 2326 80 148/60 02/12 2304 Room Air 02/12 2301 98.1 78 20 148/60 98 Room Air 02/12 2119 97.9 67 20 148/68 95 Room Air 02/12 1922 Room Air 02/124 98.5 76 18 157/74 98 Room Air 02/12 1853 98.2 90 20 163/91 98 Room Air Intake & Output 02/13 1600 02/13 0800 02/13 0000 Intake Total 100 60 Output Total 200 Balance 100 -140 Intake, Oral 100 60 Output, Urine 200 Patient 178 lb Weight Weight Reported by Patient Measurement Method Physical Exam: Pleasant elderly male in no acute distress. He was awake, alert and cooperative. The head was normocephalic and atraumatic. Speech was fluent. Higher cortical function was grossly intact. Pupils were equal and reactive. Extraocular movements were intact. There was no field cut. Face was symmetric. Hearing was grossly normal. Tongue was midline. Motor examination showed no drift of the upper extremities. There was no focal or lateralizing weakness. Deep tendon reflexes were symmetric. Plantar responses were flexor. Fine finger movements and rapid alternating movements performed normally. The sensory examination was normal to primary modalities. Gait was untested. Assessment/Plan Assessment: The patient presents with recurrent, rather stereotyped, self-limited events characterized by speech disturbance and paresthesias, curiously of BOTH hands. Differential diagnosis would include TIA, partial seizure or acephalgic could migraine. His imaging shows no evidence of left hemispheric pathology involving the speech center. Recommendations: If the patient has not already undergone a carotid ultrasound, he should have one. An EEG would be appropriate however this may be done as an outpatient as suspicion for seizure is quite low. He states that he has been treated with various antiplatelet medications in the past including Plavix. I would therefore just continue him on his Aggrenox but I would endorse a higher intensity statin in the way of Lipitor 80 mg. He is currently stable and can be discharged home from our neurological perspective. We would be happy to follow him in the office setting. Consult Acknowledgment - Thank you for your consult request.
--- NOTE | 2018-02-13 14:20 | Cons- Cardiology ---
General Information and HPI Consulting Request Date of Consult: 02/13/18 Requested By: Mc Morgan MD History of Present Illness: 77 year old gentleman, with past medical history of hypertension, hyperlipidemia , diabetes, former smoker, h/o migraine, history of CVA (right cerebellar, date unknown), cardiac catheter, and bovine aortic valve replacement with several recent visits for TIAs who presents with a <1 hour history of upper extremity tingling, stumbling, and word finding difficulty. Admitted for TIA evaluation. No evidence of arrhythmia to date, although patient had evidence of mitral leaflet thickening (without stenosis) and biologicalaortic valve replacement. The echocardiogram in 12/2017 otherwise showed somes mild diastolic dysfunction and no wall motion abnormality. Patient denies chest pain, denies orthopnea, denies lower extremity claudication , denies syncope, denies palpitations, denies visible GI or bleeding. Allergies/Medications Allergies: Coded Allergies: aspirin (PLAIN ASA MAKES PT BLEED PER PT 01/10/18) ibuprofen (PER PT DOESNT TAKE 01/10/18) procaine (HEART RACES 01/10/18) Home Med List: Calcium Carbonate/Vitamin D3 (Caltrate 600 + D Tablet) 600 MG-800 TABLET 1 TAB PO DAILY SUPPLEMENT (Reported) Cyanocobalamin (Vitamin B-12) 1,000 MCG TABLET 1 TAB PO DAILY SUPPLEMENT ( Reported) Dipyridamole W/ Aspirin (Aggrenox 25 MG-200 MG Capsule) 25 MG-200 MG CPMP.12HR 1 CAP PO BID BLOOD THINNER (Reported) Ferrous Sulfate 325 MG (65 MG IRON) TABLET 1 TAB PO DAILY SUPPLEMENT ( Reported) Finasteride 5 MG TABLET 1 TAB PO DAILY PROSTATE (Reported) Glipizide 5 MG TABLET 1 TAB PO BID DM (Reported) Hydrocodone/Acetaminophen (Hydrocodon-Acetaminophen 5-325) 5 MG-325 MG TABLET 1 TAB PO PRN PAIN (Reported) Lactobacillus Acidophilus (Probiotic) (Unknown Strength) CAPSULE (Unknown Dose ) PO DAILY PROBIOTIC (Reported) Lutein 20 MG TABLET 1 TAB PO DAILY SUPPLEMENT (Reported) Metformin HCl (Glucophage) 1,000 MG TABLET 1 TAB PO QAM DM (Reported) Metoprolol Tartrate 25 MG TABLET 1 TAB PO BID HEART/BP (Reported) Multivitamin (Daily Multiple Vitamin) 1 EACH TABLET 1 TAB PO 1200 SUPPLEMENT (Reported) [place]-3S/Dha/Epa/Fish Oil (Fish Oil 1,000 MG Softgel) (Unknown Strength) CAPSULE (Unknown Dose) PO TID SUPPLEMENT (Reported) Omeprazole 40 MG CAPSULE.DR 1 CAP PO DAILY GI (Reported) Rosuvastatin Calcium (Crestor) 40 MG TABLET 1 TAB PO DAILY Hyperlipidemia Saxagliptin (Onglyza) 5 MG TABLET 1 TAB PO DAILY DM (Reported) Tamsulosin HCl (Flomax) 0.4 MG CAP.ER.24H 1 CAP PO QPM PROSTATE (Reported) Ubidecarenone (Co Q-10) 100 MG CAPSULE 1 CAP PO DAILY SUPPLEMENT (Reported) Current Medications: Current Medications Sig/Tyesha Start time Last Medication Dose Route Stop Time Status Admin Acetaminophen 650 MG Q6-PRN PRN 02/12 2200 AC PO Atorvastatin Calcium 80 MG 1700 02/12 2300 AC 02/12 PO 2326 Dipyridamole/Aspirin 1 CAP BID 02/13 0900 AC 02/13 PO 0840 Dipyridamole/Aspirin 1 CAP ONCE ONE 02/12 2030 DC 02/12 PO 02/12 Ferrous Sulfate 325 MG DAILY 02/13 0900 AC PO Finasteride 5 MG AT BEDTIME 02/12 2300 AC 02/12 PO 2326 Heparin Sodium 5,000 UNIT Q8 02/13 0600 AC 02/13 (Porcine) SC 1247 Hydrocodone Bitart/ 1 TAB ONCE ONE 02/12 2330 DC 02/12 Acetaminophen PO 02/12 2331 2326 Hydrocodone Bitart/ 1 TAB Q6-PRN PRN 02/12 2300 AC 02/13 Acetaminophen PO 0840 Insulin Aspart 0 TIDAC 02/13 0800 AC 02/13 SC 1245 Magnesium Chloride 64 MG ONCE ONE 02/13 0900 DC 02/13 PO 02/13 0901 1118 Metoprolol Tartrate 25 MG BID 02/12 2245 AC 02/13 PO 0840 Omeprazole 40 MG DAILY AC 02/13 0700 AC 02/13 PO 0522 Tamsulosin HCl 0.4 MG QPM 02/12 2300 AC 02/12 PO 2326 Review of Systems Review of Systems: see HPI. 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 aortic valve replacement Family History Relations & Conditions If Any: grandmother FH: diabetes mellitus Psychosocial History Where Do You Live? Home Who Do You Live With? spouse Services at Home: None Primary Language: Lithuanian Smoking Status: Former Smoker ETOH Use: denies use Illicit Drug Use: denies illicit drug use Functional Ability ADLs Independent: dressing, eating, toileting, bathing. Ambulation: independent IADLs Independent: shopping, housework, finances, food prep, telephone, transportation , medication admin. Employment History Employment: Retired Profession/Employer Exam & Diagnostic Data Vital Signs and I&O Vital Signs Date Time Temp Pulse Resp B/P B/P Pulse O2 O2 Flow FiO2 Mean Ox Delivery Rate 02/13 0840 74 140/72 02/13 0600 98.8 74 18 140/72 97 Room Air 02/12 2326 80 148/60 02/12 2326 80 148/60 02/12 2304 Room Air 02/12 2301 98.1 78 20 148/60 98 Room Air 02/12 2119 97.9 67 20 148/68 95 Room Air 02/12 1922 Room Air 02/12 1914 98.5 76 18 157/74 98 Room Air 02/12 1853 98.2 90 20 163/91 98 Room Air Intake & Output 02/13 1600 02/13 0800 02/13 0000 02/12 1600 02/12 0800 02/12 0000 Intake Total 100 60 Output Total 200 Balance 100 -140 Intake, Oral 100 60 Output, Urine 200 Patient 178 lb Weight Weight Reported by Patient Measurement Method Physical Exam: General Appearance Alert, Oriented X3, Cooperative, No Acute Distress HEENT Atraumatic, PERRLA, EOMI, Mucous Membr. moist/pink Neck Supple, No JVD, trachea midline. Cardiovascular Regular Rate, Normal S1, Normal S2, Gallops, Rubs, AVR murmur Lungs Clear to Auscultation, good air entry bilaterally. Abdomen Normal Bowel Sounds, Soft, No Tenderness Neurological Normal Speech, Strength at 5/5 X4 Ext, Normal Tone, Sensation Intact. Extremities good capillary refill, No Cyanosis, No Edema Labs/Jr Results: Laboratory Tests 02/13 02/12 0639 1999 Chemistry Sodium (137 - 145 mmol/L) 137 138 Potassium (3.5 - 5.1 mmol/L) 3.9 4.4 Chloride (98 - 107 mmol/L) 103 102 Carbon Dioxide (22 - 30 mmol/L) 25 27 Anion Gap (5 - 16) 9 10 BUN (9 - 20 mg/dL) 23 H 26 H Creatinine (0.7 - 1.2 mg/dL) 1.3 H 1.5 H Estimated GFR (>60 ml/min) 53 L 45 L BUN/Creatinine Ratio (7 - 25 %) 17.7 17.3 Glucose (65 - 99 mg/dL) 170 H Calcium (8.4 - 10.2 mg/dL) 9.8 Magnesium (1.6 - 2.3 mg/dL) 1.7 Total Bilirubin (0.2 - 1.3 mg/dL) 0.5 AST (17 - 59 U/L) 24 ALT (21 - 72 U/L) 28 Alkaline Phosphatase (< 127 U/L) 64 Troponin I (<0.11 ng/ml) < 0.01 < 0.01 Total Protein (6.3 - 8.2 g/dL) 7.1 Albumin (3.5 - 5.0 g/dL) 4.4 Globulin (1.9 - 4.2 gm/dL) 2.7 Albumin/Globulin Ratio (1.1 - 2.2 %) 1.6 Coagulation PT (9.4 - 12.5 SEC) 11.6 INR (0.90 - 1.17) 1.06 Hematology CBC w Diff NO MAN DIFF REQ WBC (4.8 - 10.8 /CUMM) 8.2 RBC (4.70 - 6.10 /CUMM) 3.83 L Hgb (14.0 - 18.0 G/DL) 11.6 L Hct (42 - 52 %) 34.3 L MCV (80.0 - 94.0 FL) 89.4 MCH (27.0 - 31.0 PG) 30.3 MCHC (33.0 - 37.0 G/DL) 33.9 RDW (11.5 - 14.5 %) 14.3 Plt Count (130 - 400 /CUMM) 162 MPV (7.4 - 10.4 FL) 9.4 Gran % (42.2 - 75.2 %) 71.1 Lymphocytes % (20.5 - 51.1 %) 18.6 L Monocytes % (1.7 - 9.3 %) 7.7 Eosinophils % (0 - 5 %) 2.3 Basophils % (0.0 - 2.0 %) 0.3 Absolute Granulocytes (1.4 - 6.5 /CUMM) 5.8 Absolute Lymphocytes (1.2 - 3.4 /CUMM) 1.5 Absolute Monocytes (0.10 - 0.60 /CUMM) 0.6 Absolute Eosinophils (0.0 - 0.7 /CUMM) 0.2 Absolute Basophils (0.0 - 0.2 /CUMM) 0 Assessment/Plan Assessment/Plan Multiple recent TIA in patient with biological AVR and mitral valve thickening. No evidence of cardioembolic source to date. Likely small vessel disease in the context of diabetes and former tobacco use. Keep aggrenox as is. I would like patient to wear a 4 week event monitor to r/o afib (the event monitors are placed at the office). Consult Acknowledgment - Thank you for your consult request.
--- NOTE | 2018-02-13 14:34 | Patient Discharge Instructions ---
Discharge Instructions General Discharge Information You were seen/treated for: TIA/ stroke like symptoms You had these procedures: none Watch for these problems: TIA/ stroke- , headache, blurring of vision, slurring of speech, weakness . Special Instructions: Please follow up with Neurologist within 1 month of discharge. Please follow up with Primary care provider within 1 week of discharge. Please come to ER if you develop TIA/Stroke like symtpoms. Diet Continue normal diet: No Recommended Diet: Heart Healthy Acute Coronary Syndrome Inclusion Criteria At DC or during hospital stay patient has or had the following: ACS DIAGNOSIS No Discharge Core Measures Meds if any: Prescribed or Continued at Discharge Meds if any: NOT Prescribed or Continued at Discharge Congestive Heart Failure Inclusion Criteria At DC or during hospital stay patient has or had the following: CHF DIAGNOSIS No Discharge Core Measures Meds if any: Prescribed or Continued at Discharge Meds if any: NOT Prescribed or Continued at Discharge Cerebrovascular accident Inclusion Criteria At DC or during hospital stay patient has or had the following: CVA/TIA Diagnosis Yes Discharge Core Measures Meds if any: Prescribed or Continued at Discharge Meds if any: NOT Prescribed or Continued at Discharge Venous thromboembolism Inclusion Criteria VTE Diagnosis No VTE Type NONE VTE Confirmed by (Test) NONE Discharge Core Measures - Per Current guidelines, there needs to be overlap - treatment for the first 5 days of Warfarin therapy. - If discharged on Warfarin prior to 5 days of - overlap therapy, the patient will need to be - assessed for post discharge needs including - *Post discharge parental anticoagulation - *Warfarin and/or parental anticoagulation education - *Follow up date to check INR post discharge At least 5 days overlap therapy as Inpatient No Meds if any: Prescribed or Continued at Discharge Note: Overlap Therapy is Warfarin and Anticoagulant Meds if any: NOT Prescribed or Continued at Discharge
[2018-02-13 14:36] VITALS: BP 152/68
[2018-02-13] MEDS ORDERED: ATORVASTATIN CA80 M1 PO (14:43)
[2018-02-13] MEDS ORDERED: CRESTOR40 M2 PO ×2 (15:59→16:01)
--- NOTE | 2018-02-13 16:03 | MRI REPORT ---
EXAMINATION: MR BRAIN WITHOUT CONTRAST CLINICAL INFORMATION: Weakness. Assess for stroke or TIA. COMPARISON: CT scan of the head 02/12/2018. TECHNIQUE: MRI of the brain without contrast was obtained using routine sequences. FINDINGS: No diffusion abnormalities are identified to suggest an acute or subacute infarct. No mass effect or midline shift is seen. The ventricles and sulci commensurately prominent consistent with moderate diffuse volume loss. There are scattered areas of increased T2 and FLAIR signal in the periventricular and subcortical white matter in the juan consistent with chronic microvascular ischemic changes. There is an area of gliosis and encephalomalacia in the right cerebellar hemisphere, corresponding to the previously described right cerebellar infarct. This focus has a mild amount of low gradient signal, consistent with hemosiderin staining. A small focus of low gradient signal is seen laterally in the left cerebellar hemisphere, which is nonspecific. There are no extra-axial fluid collections. The craniovertebral junction, marrow signal, and midline structures are normal. The major intracranial flow-voids at the level of the [place] of [place] are preserved. The dural venous sinus flow-voids are maintained. The mastoid air cells are well-aerated. There is mild mucoperiosteal thickening in the ethmoid sinuses bilaterally. IMPRESSION: 1. There are no acute bleeds or infarcts. 2. There is diffuse volume loss and there are chronic microvascular ischemic changes. There are sequelae of an old infarct in the right cerebellar hemisphere.
--- NOTE | 2018-02-14 09:35 | PN- Housestaff ---
Subjective Follow-up For: TIA Complaints: no complaints Tele-Events Since Last Visit: none Subjective: Patient was examined bedside and was sleeping, when examined later , said he wwas doing fine and felt good enought to go home Review of Systems Constitutional: Reports: see HPI. Denies: no symptoms. Objective Last 24 Hrs of Vital Signs/I&O none Physical Exam General Appearance: Alert, Oriented X3, Cooperative, No Acute Distress Cardiovascular: Regular Rate, No Murmurs Lungs: Clear to Auscultation, Normal Air Movement Abdomen: Normal Bowel Sounds, Soft, No Tenderness, No Hepatospenomegaly, No Masses Neurological: Normal Speech, Strength at 5/5 X4 Ext, Normal Tone, Sensation Intact Extremities: No Clubbing, No Cyanosis, No Edema, Normal Pulses, No Tenderness/ Swelling Current Medications: see medications Last 24 Hrs of Lab/Jr Results Last 24 Hrs of Labs/Mics: see labs Assessment/Plan Assessment: 77-year-old male with past medical history of hypertension, hyperlipidemia, diabetes, former smoker, h/o migraine, history of CVA (right cerebellar, date unknown), cardiac catheter, and bovine aortic valve replacement with several recent visits for TIAs who presents with a <1 hour history of upper extremity tingling, stumbling, and word finding difficulty. Anion Gap 10, Estimated GFR 45 L, BUN/Creatinine Ratio 17.3, Glucose 170 H, Calcium 9.8, Total Bilirubin 0.5, AST 24, ALT 28, Alkaline Phosphatase 64, Troponin I < 0.01, Total Protein 7.1, Albumin 4.4, Globulin 2.7, Albumin/ Globulin Ratio 1.6, PT 11.6, INR 1.06, CBC w Diff NO MAN DIFF REQ, RBC 3.83 L, MCV 89.4, MCH 30.3, MCHC 33.9, RDW 14.3, MPV 9.4, Gran % 71.1, Lymphocytes % 18.6 L, Monocytes % 7.7, Eosinophils % 2.3, Basophils % 0.3, Absolute Granulocytes 5.8, Absolute Lymphocytes 1.5, Absolute Monocytes 0.6, Absolute Eosinophils 0.2, Absolute Basophils 0 EKG Results unknown CXR Results Unremarkable exam Other Results CT head - No acute intracranial pathology. 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 MRI IMPRESSION: 1. There are no acute bleeds or infarcts. 2. There is diffuse volume loss and there are chronic microvascular ischemic changes. There are sequelae of an old infarct in the right cerebellar hemisphere. TIA HTN HLD DM -Accu-Cheks 3 times daily before meals needs once per day BPH -Continue finasteride and Flomax Anemia -continue ferrous sulfate home medication DVT Prophylaxis: Subcu heparin Heart healthy diet Patient is full code Problem List: 1. TIA (transient ischemic attack) Pain Ratin Pain Location: none Pain Goal: Remain pain free Pain Plan: none Tomorrow's Labs & Rationales: none
--- NOTE | 2018-02-14 09:39 | Discharge Summary ---
Visit Information Visit Dates Admission Date: 02/12/18 Discharge Date: 02/13/18 Hospital Course Course Attending Physician: Benedict NAYAK,Tevin Miller Primary Care Physician: Eusebio Mcgowan MD Hospital Course: 77-year-old male with past medical history of hypertension, hyperlipidemia, diabetes, former smoker, h/o migraine, history of CVA (right cerebellar, date unknown), cardiac catheter, and bovine aortic valve replacement with several recent visits for TIAs who presents with a <1 hour history of upper extremity tingling, stumbling, and word finding difficulty. Anion Gap 10, Estimated GFR 45 L, BUN/Creatinine Ratio 17.3, Glucose 170 H, Calcium 9.8, Total Bilirubin 0.5, AST 24, ALT 28, Alkaline Phosphatase 64, Troponin I < 0.01, Total Protein 7.1, Albumin 4.4, Globulin 2.7, Albumin/ Globulin Ratio 1.6, PT 11.6, INR 1.06, CBC w Diff NO MAN DIFF REQ, RBC 3.83 L, MCV 89.4, MCH 30.3, MCHC 33.9, RDW 14.3, MPV 9.4, Gran % 71.1, Lymphocytes % 18.6 L, Monocytes % 7.7, Eosinophils % 2.3, Basophils % 0.3, Absolute Granulocytes 5.8, Absolute Lymphocytes 1.5, Absolute Monocytes 0.6, Absolute Eosinophils 0.2, Absolute Basophils 0 EKG Results unknown CXR Results Unremarkable exam Other Results CT head - No acute intracranial pathology. 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 MRI IMPRESSION: 1. There are no acute bleeds or infarcts. 2. There is diffuse volume loss and there are chronic microvascular ischemic changes. There are sequelae of an old infarct in the right cerebellar hemisphere. TIA HTN HLD DM -Accu-Cheks 3 times daily before meals needs once per day BPH -Continue finasteride and Flomax Anemia -continue ferrous sulfate home medication DVT Prophylaxis: Subcu heparin Heart healthy diet Patient is full code Allergies: Coded Allergies: aspirin (PLAIN ASA MAKES PT BLEED PER PT 01/10/18) ibuprofen (PER PT DOESNT TAKE 01/10/18) procaine (HEART RACES 01/10/18) Disposition Summary Disposition Principal Diagnosis: suspected TIA_ ruled out Additional Diagnosis: Diabetes Discharge Disposition: home or self care Discharge Instructions General Discharge Information Code Status: Full Code Patient's Diet: heart healthy Patient's Activity: full Follow-Up Instructions/Appts: Please follow up with PCP within 1 week fo discharge Please follow up with Cardiology within 1 week of discharge pllease follow up with neurology after 1 week of dischagre Copies To: Duke NAYAK,Dolores; James NAYAK,Pedro Moe; Juan M NAYAK,Eusebio Anne
== END 2018-02-13 18:35 ==
LOC: ERH 18:45 → 1NO 21:24 → ERHI 21:24 → 1NO 21:24 → ENRESERV 22:05 → ENTRNSPT 22:28 → 1NO 22:43 → CMPTRNSPT 23:00 → DELTRNSPT 02-13 18:05 → ENTRNSPT 02-13 18:06 → EDTRNSPT 02-13 18:07 → CMPTRNSPT 02-13 18:30 → 1NO 02-13 18:35
PROVIDERS: Emergency Medicine
DX: R20.2 Paresthesia of skin (principal); R47.9 Unspecified speech disturbances; N40.0 Benign prostatic hyperplasia without lower urinary tract symptoms; I10 Essential (primary) hypertension; E78.5 Hyperlipidemia, unspecified; E11.9 Type 2 diabetes mellitus without complications; Z79.84 Long term (current) use of oral hypoglycemic drugs; Z87.891 Personal history of nicotine dependence; D64.9 Anemia, unspecified; G43.909 Migraine, unspecified, not intractable, without status migrainosus; Z86.73 Personal history of transient ischemic attack (TIA), and cerebral infarction without residual deficits; Z95.2 Presence of prosthetic heart valve; Z79.01 Long term (current) use of anticoagulants
CPT/HCPCS: 6020; 70551; 36592; 71045; 82436; 92610-GN; 93005; 93010; 96372; 97110-GP; 97116-GP; 97161-GP; 97165-GO; 99291; G0378; G8978-GP; G8979-GP; G8980-GP; G8996-GN; G8997-GN; G8998-GN; J1644